=== PATIENT | male | born 1975 | race Hispanic/Latino ===

== ENCOUNTER 2018-05-17 11:24 | Inpatient (IN) | payer BC, OTHER ==
[~2018-05-17] VITALS: Ht 170.2 cm; Wt 81.2 kg
--- OUTSIDE RECORDS SUMMARY | 2018-05-17 11:27 | XMS REPORT ---
Author Author Donaldo Holbrook Organization eClinicalWorks Address Unknown Phone Unavailable Care Team Providers Care Senior Pl Sql Developer Name Role Phone Donaldo Holbrook Unavailable Encounters Encounter Location Date Test Results [facility] Jan 24, 2014 2 MONTH FU [facility] Jan 11, 2014 Night 1 Sleep Study [facility] Mar 06, 2014 Night 2 Sleep Study [facility] Mar 20, 2014 blood sugar [facility] November 21, 2013 Follow-Up [facility] November 02, 2013 Follow-Up [facility] December 04, 2013 CPAP Follow Up [facility] Apr 09, 2014 Test Results [facility] Apr 17, 2014 Problems Problem Type Condition ICD-9 Code Onset Dates Condition Status Problem CAD (coronary artery disease) 414.00 Active Problem Chronic combined systolic and diastolic CHF (congestive heart failure) 428.42 Active Problem Acute thrombus of left ventricle without [place] 429.89 Active Problem Hypertension 401.9 Active Problem Vitamin d deficiency 268.9 Active Problem Anxiety 300.00 Active Problem 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 Status , Is guatemalan your primary language? Yes Apr 09, 2014 Tobacco Use: . Are you a: former smoker Apr 09, 2014 Use of recreational / street drugs? . Answer: No Apr 09, 2014 Alcohol Screening: . Points: 0 Apr 09, 2014 Do you have pets? . Status: Yes, Type: dog(s) Apr 09, 2014 Marital Status: . Apr 09, 2014 Caffeine intake? . Status: Yes, What type: Coffee, Tea, Soft Drinks Apr 09, 2014 Do you exercise? . Answer: No Apr 09, 2014 Do you drink alcohol? . Status: No, How often? Daily, How much? Socially Apr 09, 2014 Summary Purpose eClinicalWorks Submission
--- OUTSIDE RECORDS SUMMARY | 2018-05-17 11:27 | XMS REPORT ---
Author Author Elizabeth Mcmahon [facility] eClinicalWorks Address Unknown Phone Unavailable Care Team Providers Care Reprint Sorter Name Role Phone Elizabeth Mcmahon CP Unavailable Encounters Encounter Location Date blood sugar [facility] November 21, 2013 Follow-Up [facility] November 02, 2013 Problems Problem Type Condition ICD-9 Code Onset Dates Condition Status Problem Chronic combined systolic and diastolic CHF (congestive heart failure) 428.42 Active Problem Hyperlipidemia 272.4 Active Problem Diabetes mellitus 250.00 Active Problem Hypertension 401.9 Active Problem 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 Status , Is citizen of [place] your primary language? Yes November 02, 2013 Tobacco Use: . Are you a: current smoker, How many packs per day? less than a half pack weekend smoker., How many years have you smoked? less than 1 November 02, 2013 Use of recreational / street drugs? . Answer: No November 02, 2013 Alcohol Screening: . Points: 9, Interpretation: Positive November 02, 2013 Do you have pets? . Status: Yes, Type: dog(s) November 02, 2013 Marital Status: . November 02, 2013 Caffeine intake? . Status: Yes, What type: Coffee, Tea, Soft Drinks November 02, 2013 Do you exercise? . Answer: No November 02, 2013 Do you drink alcohol? . Status: No, How often? Daily, How much? Socially November 02, 2013 Summary Purpose eClinicalWorks Submission
--- OUTSIDE RECORDS SUMMARY | 2018-05-17 11:27 | XMS REPORT ---
Author Author Donaldo Holbrook Organization eClinicalWorks Address Unknown Phone Unavailable Care Team Providers Care Assembler Unit Name Role Phone Donaldo Holbrook CP Unavailable Encounters Encounter Location Date Test Results [facility] Jan 24, 2014 2 MONTH FU [facility] Jan 11, 2014 Night 1 Sleep Study [facility] Mar 06, 2014 Night 2 Sleep Study [facility] Mar 20, 2014 blood sugar [facility] November 21, 2013 Follow-Up [facility] November 02, 2013 Follow-Up [facility] December 04, 2013 CPAP Follow Up [facility] Apr 09, 2014 Test Results [facility] Apr 17, 2014 Problems Problem Type Condition ICD-9 Code Onset Dates Condition Status Problem Chronic combined systolic and diastolic CHF (congestive heart failure) 428.42 Active Assessment 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 Problem Hypertension 401.9 Active Problem Hyperlipidemia 272.4 Active Problem Acute thrombus of left ventricle without [place] 429.89 Active Problem 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 Problem CAD (coronary artery disease) 414.00 Active Problem Diabetes mellitus 250.00 Active Problem Anxiety 300.00 Active Medications Medication Code System Code Instructions Start Date End Date Status Dosage Vitamin D (Ergocalciferol) [facility] [address]-91 19420 UNIT by mouth once per week Jan 24, 2014 Apr 18, 2014 Active 1 capsule Simcor [facility] [address]-28 500-20 MG Orally Once a day Active 1 tablet at bedtime Warfarin S[facility] [address]-04 5 MG Orally 3 x week Active 1 tablet Escitalopram Oxalate [facility] [address]-48 20 mg Orally Once a day Active 0.5 tablet for 1 week, then take a whole pill Lisinopril [facility] [address]-37 10 mg Orally Once a day Active 1 tablet Kombiglyze XR [facility] [address]-65 2.5-1000 MG Orally Once a day Active 2 tablet with evening meal Carvedilol [facility] [address]-29 3.125 MG Orally Twice a day Active 1 tablet with food Coumadin [facility] [address]-48 2.5 MG Orally 3 X week Active 1 tablet Furosemide [facility] [address]-99 40 mg Orally Once a day Active 2 tablets Clopidogrel Bisulfate [facility] [address]-69 75 MG Orally Once a day Active 1 tablet Potassium Bicarb-Citric Acid [facility] [address]-15 20 MEQ Orally Once a day- only for 2 days Active 1 tablet HydrOXYzine HCl [facility] [address]-91 10 mg Orally as needed October 17, 2013 Active 1 tablet prn anxiety Social History Social History Element Qualifiers Date Reported Ethnicity . Status , Is belarusian your primary language? Yes Apr 09, 2014 [...]
--- OUTSIDE RECORDS SUMMARY | 2018-05-17 11:27 | XMS REPORT ---
Author Author Donaldo Holbrook Organization eClinicalWorks Address Unknown Phone Unavailable Care Team Providers Care Transfer Clerk Name Role Phone Donaldo Holbrook CP Unavailable Allergies, Adverse Reactions, Alerts Substance Reaction Event Type N.K.D.A. Info Not Available Non Drug Allergy Encounters Encounter Location Date blood sugar [facility] November 21, 2013 Follow-Up [facility] November 02, 2013 Problems Problem Type Condition ICD-9 Code Onset Dates Condition Status Assessment Hyperlipidemia 272.4 Active Problem Chronic combined systolic and diastolic CHF (congestive heart failure) 428.42 Active Assessment Hypertension 401.9 Active Problem Hyperlipidemia 272.4 Active Problem Diabetes mellitus 250.00 Active Problem Hypertension 401.9 Active Problem 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 Problem CAD (coronary artery disease) 414.00 Active Problem Anxiety 300.00 Active Problem Smoker 305.1 Active Assessment ETOH abuse 305.00 Active Assessment Smoker 305.1 Active Assessment 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 Assessment Anxiety 300.00 Active Assessment LBBB (left bundle branch block) 426.3 Active Assessment Diabetes mellitus 250.00 Active Medications Medication Code System Code Instructions Start Date End Date Status Dosage Kombiglyze XR [facility] [address]-72 2.5-1000 MG Orally Once a day October 17, 2013 Active 2 tablet with evening meal [facility] [address]-46 20 mg Orally Once a day October 17, 2013 Active 0.5 tablet for 1 week, then take a whole pill HydrOXYzine HCl [facility] [address]-54 10 mg Orally every six to eight hours Active 1 tablet prn anxiety Kombiglyze XR [facility] [address]-86 2.5-1000 MG Orally Once a day Active 2 tablet with evening meal [facility]inopril [facility] [address]-50 10 mg Orally Once a day Active 1 tablet HydrOXYzine HCl [facility] [address]-11 10 mg Orally every six to eight hours October 17, 2013 Active 1 tablet prn anxiety Escitalopram Oxalate [facility] [address]-35 20 mg Orally Once a day Active 0.5 tablet for 1 week, then take a whole pill Clopidogrel Bisulfate [facility] [address]-42 75 MG Orally Once a day Active 1 tablet GlipiZIDE [facility] [address]-29 10 mg Orally Once a day Active 1 tablet Simcor [facility] [address]-25 500-20 MG Orally Once a day Active 1 tablet at bedtime Social History Social History Element Qualifiers Date Reported Ethnicity . Status , Is estonian your primary language? Yes November 02, 2013 [...] Daily, How much? Socially November 02, 2013 Vital Signs Date/Time: November 02, 2013 Weight 220 lbs Height 67 in Cardiac Monitoring Heart Rate 88 /min Blood Pressure Diastolic 80 mm Hg Blood Pressure Systolic 122 mm Hg Summary Purpose eClinicalWorks Submission
--- OUTSIDE RECORDS SUMMARY | 2018-05-17 11:27 | XMS REPORT ---
Author Author Danelle Simon [facility] eClinicalWorks Address Unknown Phone Unavailable Care Team Providers Care Pit Manager Name Role Phone Danelle Simon CP Unavailable Allergies, Adverse Reactions, Alerts Substance Reaction Event Type N.K.D.A. Info Not Available Non Drug Allergy Encounters Encounter Location Date blood sugar [facility] November 21, 2013 Follow-Up [facility] November 02, 2013 Follow-Up [facility] December 04, 2013 Problems Problem Type Condition ICD-9 Code Onset Dates Condition Status Assessment Hypertension 401.9 Active Problem Chronic combined systolic and diastolic CHF (congestive heart failure) 428.42 Active Assessment Diabetes mellitus 250.00 Active Problem Hypertension 401.9 Active Problem Hyperlipidemia 272.4 Active Problem Acute thrombus of left ventricle without [place] 429.89 Active Problem 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 Problem CAD (coronary artery disease) 414.00 Active Problem Diabetes mellitus 250.00 Active Problem Anxiety 300.00 Active Assessment [place] thrombus of cardiac apex 410.10 Active Assessment CHF (congestive heart failure) 428.0 Active Assessment LBBB (left bundle branch block) 426.3 Active Assessment Sleep apnea 780.57 Active Assessment 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 Medications Medication Code System Code Instructions Start Date End Date Status Dosage GlipiZIDE [facility] [address]-19 10 mg Orally Once a day Active 1 tablet Clopidogrel Bisulfate [facility] [address]-13 75 MG Orally Once a day Active 1 tablet Simcor [facility] [address]-63 500-20 MG Orally Once a day Active 1 tablet at bedtime HydrOXYzine HCl [facility] [address]-81 10 mg Orally as needed Active 1 tablet prn anxiety Potassium Bicarb-Citric Acid [facility] [address]-11 20 MEQ Orally Once a day- only for 2 days Active 1 tablet Furosemide [facility] [address]-33 40 MG Orally Once a day Active 1 tablet Carvedilol [facility] [address]-46 3.125 MG Orally Twice a day Active 1 tablet with food Escitalopram Oxalate [facility] [address]-38 20 mg Orally Once a day Active 0.5 tablet for 1 week, then take a whole pill Kombiglyze XR [facility] [address]-16 2.5-1000 MG Orally Once a day Active 2 tablet with evening meal Lisinopril [facility] [address]-46 10 mg Orally Once a day Active 1 tablet Furosemide Unknown 0 Oral Active 1 tab Coumadin [facility] [address]-68 2.5 MG Orally 3 X week Active 1 tablet Warfarin Sodium [facility] [address]-14 5 MG Orally 2 X week Active 1 tablet HydrOXYzine HCl [facility] [address]-09 10 mg Orally as needed October 17, 2013 Active 1 tablet prn anxiety Social History Social History Element Qualifiers Date Reported Ethnicity . Status , Is uzbek your primary language? Yes Jan 11, 2014 Tobacco Use: . Are you a: former smoker Jan 11, 2014 Use of recreational / street drugs? . Answer: No Jan 11, 2014 Alcohol Screening: . Points: 0 Jan 11, 2014 Do you have pets? . Status: Yes, Type: dog(s) Jan 11, 2014 Marital Status: . Jan 11, 2014 Caffeine intake? . Status: Yes, What type: Coffee, Tea, Soft Drinks Jan 11, 2014 Do you exercise? . Answer: No Jan 11, 2014 Do you drink alcohol? . Status: No, How often? Daily, How much? Socially Jan 11, 2014 Family history Qualifier Description Comment Date Reported Maternal Grandmother liver cancer Jan 11, 2014 Paternal Grandmother Comment not available Jan 11, 2014 Siblings alive Comment not available Jan 11, 2014 Maternal Grandfather Comment not available Jan 11, 2014 Children alive Comment not available Jan 11, 2014 Father alive Comment not available Jan 11, 2014 Paternal Grandfather alive Comment not available Jan 11, 2014 Mother Comment not available Jan 11, 2014 Vital Signs Date/Time: December 04, 2013 Weight 214 lbs Height 67 in Cardiac Monitoring Heart Rate 90 /min Blood Pressure Diastolic 70 mm Hg Blood Pressure Systolic 110 mm Hg Summary Purpose eClinicalWorks Submission
--- OUTSIDE RECORDS SUMMARY | 2018-05-17 11:27 | XMS REPORT ---
Author Author Donaldo Holbrook Organization eClinicalWorks Address Unknown Phone Unavailable Care Team Providers Care Air Intelligence Specialist Name Role Phone Donaldo Holbrook CP Unavailable Allergies, Adverse Reactions, Alerts Substance Reaction Event Type N.K.D.A. Info Not Available Non Drug Allergy Encounters Encounter Location Date Test Results [facility] Jan 24, 2014 2 MONTH FU [facility] Jan 11, 2014 Night 1 Sleep Study [facility] Mar 06, 2014 Night 2 Sleep Study [facility] Mar 20, 2014 blood sugar [facility] November 21, 2013 Follow-Up [facility] November 02, 2013 Follow-Up [facility] December 04, 2013 CPAP Follow Up [facility] Apr 09, 2014 Test Results [facility] Apr 17, 2014 Problems Problem Type Condition ICD-9 Code Onset Dates Condition Status Assessment PATIENCE (obstructive sleep apnea) 327.23 Active Problem CAD (coronary artery disease) 414.00 Active Problem Chronic combined systolic and diastolic CHF (congestive heart failure) 428.42 Active Problem Acute thrombus of left ventricle without [place] 429.89 Active Problem Hypertension 401.9 Active Problem Vitamin d deficiency 268.9 Active Problem Anxiety 300.00 Active Problem 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 Problem Hyperlipidemia 272.4 Active Problem Diabetes mellitus 250.00 Active Assessment Vitamin d deficiency 268.9 Active Assessment Diabetes mellitus 250.00 Active Assessment BMI 31.0-31.9,adult V85.31 Active Assessment Influenza vaccine refused V64.06 Active Assessment Acute thrombus of left ventricle without [place] 429.89 Active Assessment Obesity 278.00 Active Assessment CAD (coronary artery disease) 414.00 Active Medications Medication Code System Code Instructions Start Date End Date Status Dosage War[facility]in [facility] [address]-27 5 MG Orally 3 x week Active 1 tablet Kombiglyze XR [facility] [address]-50 2.5-1000 MG Orally Once a day Active 2 tablet with evening meal Carvedilol [facility] [address]-92 3.125 MG Orally Twice a day Active 1 tablet with food Lisinopril [facility] [address]-73 10 mg Orally Once a day Active 1 tablet HydrOXYzine HCl [facility] [address]-59 10 mg Orally as needed October 17, 2013 Active 1 tablet prn anxiety Escitalopram Oxalate [facility] [address]-99 20 mg Orally Once a day Active 0.5 tablet for 1 week, then take a whole pill Clopidogrel Bisulfate [facility] [address]-07 75 MG Orally Once a day Active 1 tablet Coumadin [facility] [address]-12 2.5 MG Orally 3 X week Active 1 tablet Potassium Bicarb-Citric Acid [facility] [address]-07 20 MEQ Orally Once a day- only for 2 days Active 1 tablet Vitamin D (Ergocalciferol) [facility] [address]-53 70621 UNIT by mouth once per week Jan 24, 2014 Apr 18, 2014 Active 1 capsule Simcor [facility] [address]-25 500-20 MG Orally Once a day Active 1 tablet at bedtime Furosemide [facility] [address]-38 40 mg Orally Once a day Active 2 tablets Social History Social History Element Qualifiers Date Reported Ethnicity . Status , Is yakut your primary language? Yes Apr 09, 2014 [...] Daily, How much? Socially Apr 09, 2014 Vital Signs Date/Time: Apr 09, 2014 Weight 199 lbs Height 67 in Cardiac Monitoring Heart Rate 76 /min Blood Pressure Diastolic 74 mm Hg Blood Pressure Systolic 110 mm Hg Summary Purpose eClinicalWorks Submission
--- OUTSIDE RECORDS SUMMARY | 2018-05-17 11:27 | XMS REPORT ---
Author Author Elizabeth Robertson [facility] eClinicalWorks Address Unknown Phone Unavailable Care Team Providers Care Manager Product Management Name Role Phone Elizabeth Robertson Unavailable Encounters Encounter Location Date Test Results [facility] Jan 24, 2014 2 MONTH FU [facility] Jan 11, 2014 Night 1 Sleep Study [facility] Mar 06, 2014 Night 2 Sleep Study [facility] Mar 20, 2014 blood sugar [facility] November 21, 2013 fu/med refill [facility] Mar 03, 2015 Follow-Up [facility] November 02, 2013 lab results [facility] Apr 16, 2015 Follow-Up [facility] December 04, 2013 New Refill Request [facility] August 01, 2014 CPAP Follow Up [facility] Apr 09, 2014 Test Results [facility] Apr 17, 2014 Problems Problem Type Condition ICD-9 Code Onset Dates Condition Status Problem Mixed hyperlipidemia E78.2 Active Problem Chronic combined systolic and diastolic CHF (congestive heart failure) I50.42 Active Problem 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 Active Problem 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 Problem Acute thrombus of left ventricle without [place] 429.89 Active Problem Diabetes mellitus E11.9 Active Problem Coronary atherosclerosis due to severely calcified coronary lesion I25.84 Active Problem CAD (coronary artery disease) I25.10 Active Problem Essential hypertension I10 Active Problem Vitamin D deficiency E55.9 Active Problem Anxiety F41.9 Active Problem Depression F32.9 Active Medications Medication Code System Code Instructions Start Date End Date Status Dosage Vitamin D [facility] [address]-07 42548 U Orally once a week Apr 16, 2015 August 15, 2015 Active as directed Social History Social History Element Qualifiers Date Reported Tobacco Use: . Are you a: former smoker, Additional Findings: Tobacco Non-User Ex-cigarette smoker Mar 03, 2015 Use of recreational / street drugs? . Answer: No Mar 03, 2015 Alcohol Screening: . Points: 0 Mar 03, 2015 Ethnicity . Status , Is spanish your primary language? Yes Mar 03, 2015 Do you have pets? . Status: Yes, Type: dog(s) Mar 03, 2015 Marital Status: . Mar 03, 2015 Caffeine intake? . Status: Yes, What type: Coffee, Tea, Soft Drinks Mar 03, 2015 Do you exercise? . Answer: No Mar 03, 2015 Do you drink alcohol? . Status: No, How often? Daily, How much? Socially Mar 03, 2015 Occupation: . [employer] Mar 03, 2015 Summary Purpose eClinicalWorks Submission
--- OUTSIDE RECORDS SUMMARY | 2018-05-17 11:27 | XMS REPORT ---
Author Author Donaldo Holbrook Organization [employer] Address Unknown Phone Unavailable Care Team Providers Care Licensed Practical Nurse Instructor Name Role Phone Donaldo Holbrook CP Unavailable Allergies, Adverse Reactions, Alerts Substance Reaction Event Type N.K.D.A. 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 Active Problem Obesity (BMI 30-39.9) E66.9 Active Assessment Mixed hyperlipidemia E78.2 Active Problem Coronary atherosclerosis due to severely calcified coronary lesion I25.84 Active Problem 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 Active Problem Chronic combined systolic and diastolic CHF (congestive heart failure) I50.42 Active Problem Mixed hyperlipidemia E78.2 Active Assessment Anxiety F41.9 Active Assessment Coronary atherosclerosis due to severely calcified coronary lesion I25.84 Active Assessment Essential hypertension I10 Active Assessment Depression F32.9 Active Assessment Chronic combined systolic and diastolic CHF (congestive heart failure) I50.42 Active Assessment Routine physical examination Z00.00 Active Assessment CAD (coronary artery disease) I25.10 Active Assessment Diabetes mellitus E11.9 Active Medications Medication Code System Code Instructions Start Date End Date Status Dosage Carvedilol [facility] 73082496388 6.25 MG Orally once a day Active 2 tablets with food Clopidogrel Bisulfate ND 79075158520 75 MG Orally Once a day Active 1 tablet Entresto ND 09226974649 49-51 MG Orally Twice a day Active 1 tablet Lisinopril [facility] 24481666540 20 MG Orally Once a day Active 1 tablet Furosemide [facility] 24117868330 40 mg Orally Once a day Active 2 tablets Aspir-81 [facility] 22188941338 81 MG Orally Once a day Active 1 tablet Simcor [facility] 44740124249 500-20 MG Orally Once a day Active 1 tablet at bedtime Xarelto [facility] 71122326381 20 MG Orally Once a day Active 1 tablet with food Spironolactone [facility] 40440418653 25 MG Orally once daily Active 1 tablet Atorvastatin Calcium [facility] 86394402274 20 MG Orally Once a day Active 1 tablet Kombiglyze XR [facility] [address]-46 2.5-1,000 Active TAKE TWO TABLETS BY MOUTH DAILY WITH EVENING MEAL Kombiglyze XR [facility] 50206667676 2.5-1000 MG Orally Once a day Mar 26, 2016 Active 2 tablet with evening meal Escitalopram Oxalate [facility] [address]-85 20 mg Orally daily Mar 26, 2016 Active 1 tablet Vital Signs Date/Time: Jun 10, 2017 BMI 30.07 Index Weight 192 lbs Height 67 in Cardiac Monitoring Heart Rate 71 /min Blood Pressure Diastolic 64 mm Hg Blood Pressure Systolic 110 mm Hg Results No Known Results Summary Purpose [employer] Submission
--- OUTSIDE RECORDS SUMMARY | 2018-05-17 11:27 | XMS REPORT ---
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 Problem Coronary atherosclerosis due to severely calcified coronary lesion I25.84 Active Problem Varicose veins of right lower extremity with inflammation I83.11 Active Problem Vitamin D deficiency E55.9 Active Problem Depression F32.9 Active Problem 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
--- OUTSIDE RECORDS SUMMARY | 2018-05-17 11:27 | XMS REPORT ---
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 Role Phone Donaldo Holbrook CP Unavailable Encounters Encounter Location Date Test Results [facility] Jan 24, 2014 2 MONTH FU [facility] Jan 11, 2014 blood sugar [facility] November 21, 2013 Follow-Up [facility] November 02, 2013 Follow-Up [facility] December 04, 2013 Problems Problem Type Condition ICD-9 Code Onset Dates Condition Status Problem Chronic combined systolic and diastolic CHF (congestive heart failure) 428.42 Active Problem Hypertension 401.9 Active Problem Hyperlipidemia 272.4 Active Problem Acute thrombus of left ventricle without [place] 429.89 Active Problem 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 Status , Is algerian your primary language? Yes Jan 11, 2014 [...] Daily, How much? Socially Jan 11, 2014 Summary Purpose [employer]Works Submission
--- OUTSIDE RECORDS SUMMARY | 2018-05-17 11:27 | XMS REPORT ---
Author Author Donaldo Holbrook Organization [employer] Address Unknown Phone Unavailable Care Team Providers Care Assistant Film Editor Name Role Phone Donaldo Holbrook CP Unavailable Allergies, Adverse Reactions, Alerts Substance Reaction Event Type N.K.D.A. Info Not Available Non Drug Allergy Encounters Encounter Location Date Test Results [facility] Jan 24, 2014 2 MONTH FU [facility] Jan 11, 2014 blood sugar [facility] November 21, 2013 Follow-Up [facility] November 02, 2013 Follow-Up [facility] December 04, 2013 Problems Problem Type Condition ICD-9 Code Onset Dates Condition Status Assessment Acute thrombus of left ventricle without CT 429.89 Active Problem Chronic combined systolic and diastolic CHF (congestive heart failure) 428.42 Active Assessment Diabetes mellitus 250.00 Active Problem Hypertension 401.9 Active Problem Hyperlipidemia 272.4 Active Problem Acute thrombus of left ventricle without CT 429.89 Active Problem 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 Problem CAD (coronary artery disease) 414.9 Active Problem Diabetes mellitus 250.00 Active Problem Anxiety 300.00 Active Assessment Chronic combined systolic and diastolic CHF (congestive heart failure) 428.42 Active Assessment CAD (coronary artery disease) 414.9 Active Assessment Sleep apnea 780.57 Active Assessment Hyperlipidemia 272.4 Active Assessment 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 Assessment Hypertension 401.9 Active Medications Medication Code System Code Instructions Start Date End Date Status Dosage Escitalopram Oxalate [facility] [address]-56 20 mg Orally Once a day Active 0.5 tablet for 1 week, then take a whole pill Kombiglyze XR [facility] [address]-28 2.5-1000 MG Orally Once a day Active 2 tablet with evening meal GlipiZIDE [facility] [address]-93 10 mg Orally Once a day Active 1 tablet Potassium Bicarb-Citric Acid [facility] [address]-97 20 MEQ Orally Once a day- only for 2 days Active 1 tablet HydrOXYzine HCl [facility] [address]-76 10 mg Orally as needed October 17, 2013 Active 1 tablet prn anxiety Clopidogrel Bisulfate [facility] [address]-38 75 MG Orally Once a day Active 1 tablet Warfarin Sodium [facility] [address]-30 5 MG Orally 3 x week Active 1 tablet Carvedilol [facility] [address]-01 3.125 MG Orally Twice a day Active 1 tablet with food Lisinopril [facility] [address]-70 10 mg Orally Once a day Active 1 tablet Coumadin [facility] [address]-81 2.5 MG Orally 3 X week Active 1 tablet Simcor [facility] [address]-78 500-20 MG Orally Once a day Active 1 tablet at bedtime Furosemide [facility] [address]-76 40 mg Orally Once a day Active 2 tablets Social History Social History Element Qualifiers Date Reported Ethnicity . Status , Is scottish your primary language? Yes Jan 11, 2014 [...] Daily, How much? Socially Jan 11, 2014 Vital Signs Date/Time: Jan 11, 2014 Weight 202 lbs Height 67 in Cardiac Monitoring Heart Rate 91 /min Blood Pressure Diastolic 80 mm Hg Blood Pressure Systolic 120 mm Hg Summary Purpose [employer]ClinicalWorks Submission
--- OUTSIDE RECORDS SUMMARY | 2018-05-17 11:27 | XMS REPORT ---
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 Role Phone Elizabeth Blanchard CP Unavailable Allergies No Known Allergies Problems Problem Type Condition Code Onset Dates Condition Status Problem Diabetes mellitus E11.9 Active Problem Vitamin D deficiency E55.9 Active Problem Depression F32.9 Active Problem Anxiety F41.9 Active Problem CAD (coronary artery disease) I25.10 Active Problem BMI 30.0-30.9,adult Z68.30 Active Problem Essential hypertension I10 Active Problem Obesity (BMI 30-39.9) E66.9 Active Problem Coronary atherosclerosis due to severely calcified coronary lesion I25.84 Active Problem 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 Active Problem Chronic combined systolic and diastolic CHF (congestive heart failure) I50.42 Active Problem Mixed hyperlipidemia E78.2 Active Medications Medication Code System Code Instructions Start Date End Date Status Dosage Lisinopril [facility] 99225872162 5 MG Orally Once a day Jun 20, 2017 Active 1 tablet Results No Known Results Summary Purpose [employer]ClinicalWorks Submission
--- OUTSIDE RECORDS SUMMARY | 2018-05-17 11:27 | XMS REPORT | Encounter Summary ---
Author Organization Unknown Address [address] [place] [id number] Phone [phone] Reason for Visit Medical Complaint Instructions 1. Dental abscess abscessed tooth: care instructions Augmentin 875 mg-125 mg tablet Discussion Note: None recorded. Plan of Care Patient Instructions take medication as directed. follow up with dentist in 4-5 days for evaluation. Reminders Provider Appointments None recorded. Lab None recorded. Referral None recorded. Procedures None recorded. Surgeries None recorded. Imaging None recorded. Medications Name Start Date atorvastatin 20 mg tablet Augmentin 875 mg-125 mg tablet Take 1 tablet every 12 hours by oral route with meals for 10 days. Entresto 49 mg-51 mg tablet escitalopram 20 mg tablet Kombiglyze XR 2.5 mg-1,000 mg tablet,extended release lisinopril 20 mg tablet spironolactone 25 mg tablet Xarelto 20 mg tablet Medications Administered None recorded. Vitals Height Weight BMI Blood Pressure 5 ft 7 in 190 lbs 29.8 kg/m2 120/70 mm[Hg] Lab Results None recorded. Allergies Code Code System Name Reaction Severity Status Onset NKDA Problems None recorded. Procedures None recorded. Vaccine List Vaccine Type influenza, injectable, quadrivalent 04/29/2017 Social History Smoking Status Never Smoker Past Encounters 2017 Dental Abscess Xavier Armstrong [facility]: [address] [place] [address], Ph. History of Present Illness Pczq-Qcgfaau-Yhdqr-Skin Lesion-Bite 1 Reported By: Patient HPI: Location: face. Quality: painful, single. Severity: moderate. Duration: has noted for <1 week. Onset/Timing: gradual onset. Context: no new detergents or skin products, no one else with similar rash, no sting or bite. Aggravating factors: nothing makes it worse. Alleviating factors: antibiotics. Associated Symptoms: no fever/chills, no muscle aches, no headache, no cold symptoms, no nausea, no vomiting, no diarrhea, no urinary symptoms Review of Systems:ROS as noted in the HPI Review of Systems Basic Reported By: Patient Physical Exam Adult Basic, Adult Male Complete Reported By: Patient Constitutional: General Appearance: healthy-appearing, well-nourished, well-developed. Level of Distress: NAD. Ambulation: ambulating normally Psychiatric: Mental Status: active and alert Zug-Juuq-Zxptj-Throat: Oropharynx: ; swelling on upper jaw, left side. ttp. erythema Lungs: Respiratory effort: no dyspnea, no tachypnea, no use of accessory muscles, no intercostal retractions. Auscultation: breath sounds normal, good air movement Cardiovascular: Heart Auscultation: RRR, no murmurs
--- OUTSIDE RECORDS SUMMARY | 2018-05-17 11:27 | XMS REPORT | Continuity of Care Document ---
Author Author [facility] Interface Address Unknown Phone Unavailable Problems Problem Status Onset Date Classification Date Reported Comments Source Dental abscess 2017 Diagnosis 2017 [facility] Diabetes mellitus Active Problem 06/21/2017 [facility] Vitamin D deficiency Active Problem 06/21/2017 [facility] Depression Active Problem 06/21/2017 [facility] Anxiety Active Problem 06/21/2017 [facility] CAD Active Problem 06/21/2017 [facility] BMI 30.0-30.9,adult Active Problem 06/21/2017 [facility] Essential hypertension Active Problem 06/21/2017 [facility] Obesity Active Problem 06/21/2017 [facility] Coronary atherosclerosis due to severely calcified coronary lesion Active Problem 06/21/2017 [facility] Presence of automatic implantable cardioverter-defibrillator Active Problem 06/21/2017 [facility] Chronic combined systolic and diastolic CHF Active Problem 06/21/2017 [facility] Mixed hyperlipidemia Active Problem 06/21/2017 [facility] Chronic combined systolic and diastolic CHF Active Problem 05/07/2014 [facility] Hyperlipidemia Active Problem 05/07/2014 [facility] Diabetes mellitus Active Problem 05/07/2014 [facility] Hypertension Active Problem 05/07/2014 [facility] Hx of CABG Active Problem 06/04/2017 [facility] CAD Active Problem 05/07/2014 [facility] Anxiety Active Problem 05/07/2014 [facility] Smoker Active Problem 11/29/2013 [facility] Varicose veins of left lower extremity with inflammation Active Problem 06/04/2017 [facility] Varicose veins of right lower extremity with inflammation Active Problem 06/04/2017 [facility] Acute thrombus of left ventricle without ND Active Problem 06/04/2017 [facility] Routine physical examination Active Diagnosis 06/15/2017 [facility] ETOH abuse Active Diagnosis 11/29/2013 [facility] LBBB Active Diagnosis 01/15/2014 [facility] Vitamin d deficiency Active Problem 05/07/2014 [facility] Hypersomnia with sleep apnea Active Diagnosis 05/07/2014 [facility] CAD Active Problem 02/20/2014 [facility] Sleep apnea Active Diagnosis 02/20/2014 [facility] PATIENCE Active Diagnosis 05/07/2014 [facility] BMI 31.0-31.9,adult Active Diagnosis 05/07/2014 [facility] Influenza vaccine refused Active Diagnosis 05/07/2014 [facility] Obesity Active Diagnosis 05/07/2014 [facility] Serum potassium elevated Active Diagnosis 07/03/2016 [facility] Mural thrombus of cardiac apex Active Diagnosis 01/15/2014 [facility] CHF Active Diagnosis 01/15/2014 [facility] Medications Medication Details Route Status Patient Instructions Ordering Provider Order Date Source Lisinopril 1 tablet Orally Active 5 MG Orally Once a day Justin Schumacher 06/20/2017 [facility] Kombiglyze XR 2 tablet with evening meal Orally Active 2.5-1000 MG Orally Once a day [place] 03/26/2016 [facility] Escitalopram Oxalate 1 tablet Orally Active 20 mg Orally daily [place] 03/26/2016 [facility] Kombiglyze XR 2 tablet with evening meal Orally Active 2.5-1000 MG Orally Once a day [place] 03/26/2016 [facility] Vitamin D as directed Orally Active 10730 U Orally once a week Marcel[place] 04/16/2015 [facility] Vitamin D (Ergocalciferol) 1 capsule Orally Active 25874 UNIT Orally once per week [place] 04/17/2014 [facility] Vitamin D (Ergocalciferol) 1 capsule by mouth Active 63854 UNIT by mouth once per week [place] 01/24/2014 [facility] Kombiglyze XR 2 tablet with evening meal Orally Active 2.5-1000 MG Orally Once a day [place] 10/17/2013 [facility] Escitalopram Oxalate 0.5 tablet for 1 week, then take a whole pill Orally Active 20 mg Orally Once a day [place] 10/17/2013 [facility] HydrOXYzine HCl 1 tablet prn anxiety Orally Active 10 mg Orally as needed [place] 10/17/2013 [facility] Carvedilol 2 tablets with food Orally Active 6.25 MG Orally once a day [facility] Clopidogrel Bisulfate 1 tablet Orally Active 75 MG Orally Once a day [facility] Entresto 1 tablet Orally Active 49-51 MG Orally Twice a day [facility] Lisinopril 1 tablet Orally Active 20 MG Orally Once a day [facility] Furosemide 2 tablets Orally Active 40 mg Orally Once a day [facility] Aspir-81 1 tablet Orally Active 81 MG Orally Once a day [facility] Simcor 1 tablet at bedtime Orally Active 500-20 MG Orally Once a day [facility] Xarelto 1 tablet with food Orally Active 20 MG Orally Once a day [facility] Spironolactone 1 tablet Orally Active 25 MG Orally once daily [facility] Atorvastatin Calcium 1 tablet Orally Active 20 MG Orally Once a day [facility] Kombiglyze XR TAKE TWO TABLETS BY MOUTH DAILY WITH EVENING MEAL NA Active 2.5-1,000 [facility] HydrOXYzine HCl 1 tablet prn anxiety Orally Active 10 mg Orally as needed Ghebranjoleen [facility] Kombiglyze XR 2 tablet with evening meal Orally Active 2.5-1000 MG Orally Once a day [facility] Lisinopril 1 tablet Orally Active 10 mg Orally Once a day [facility] Escitalopram Oxalate 0.5 tablet for 1 week, then take a whole pill Orally Active 20 mg Orally Once a day [facility] Clopidogrel Bisulfate 1 tablet Orally Active 75 MG Orally Once a day [facility] GlipiZIDE 1 tablet Orally Active 10 mg Orally Once a day [facility] Simcor 1 tablet at bedtime Orally Active 500-20 MG Orally Once a day [facility] Furosemide 2 tablets Orally Active 40 mg Orally Once a day [facility] Xarelto 1 tablet with food Orally Active 20 MG Orally Once a day [facility] Carvedilol 2 tablets with food Orally Active 6.25 MG Orally once a day [facility] Lisinopril 1 tablet Orally Active 20 MG Orally Once a day [facility] Atorvastatin Calcium 1 tablet Orally Active 20 MG Orally Once a day [facility] Spironolactone 1 tablet Orally Active 25 MG Orally once daily [facility] Potassium Bicarb-Citric Acid 1 tablet Orally Active 20 MEQ Orally Once a day-only for 2 days [facility] Warfarin Sodium 1 tablet Orally Active 5 MG Orally 3 x week [facility] Carvedilol 1 tablet with food Orally Active 3.125 MG Orally Twice a day [facility] Coumadin 1 tablet Orally Active 2.5 MG Orally 3 X week [facility]semide 1 tab [facility] atorvastatin 20 MG Oral Tablet atorvastatin 20 mg tablet Active [facility] Amoxicillin 875 MG / Clavulanate 125 MG Oral Tablet [Augmentin] Augmentin 875 mg-125 mg tablet Take 1 tablet every 12 hours by oral route with meals for 10 days. Active [facility] sacubitril 49 MG / valsartan 51 MG Oral Tablet [Entresto] Entresto 49 mg-51 mg tablet Active [facility] Escitalopram 20 MG Oral Tablet escitalopram 20 mg tablet Active [facility] 24 HR Metformin hydrochloride 1000 MG / saxagliptin 2.5 MG Extended Release Oral Tablet [Kombiglyze] Kombiglyze XR 2.5 mg-1,000 mg tablet,extended release Active [facility] Lisinopril 20 MG Oral Tablet lisinopril 20 mg tablet Active [facility] Spironolactone 25 MG Oral Tablet spironolactone 25 mg tablet Active [facility] rivaroxaban 20 MG Oral Tablet [Xarelto] Xarelto 20 mg tablet Active [facility] Allergies, Adverse Reactions, Alerts Substance Category Reaction Severity Reaction type Status Date Reported Comments Source N.K.D.A. Adverse Reaction Info Not Available Adverse Reaction Active 06/10/2017 [facility] Immunizations Immunization Date Given Site Status Last Updated Comments Source influenza, injectable, quadrivalent 04/29/2017 completed [facility] Results Order Name Results Value Reference Range Date Interpretation Comments Source Vital Signs Vital Sign Value Date Comments Source Weight 192 06/10/2017 [facility] Height 67 06/10/2017 [facility] Heart Rate 71 06/10/2017 [facility] Diastolic (mm Hg) 64 06/10/2017 [facility] Systolic (mm Hg) 110 06/10/2017 [facility] Diastolic (mm Hg) 70 2017 [facility] Height 67 2017 [facility] Systolic (mm Hg) 120 2017 [facility] Weight 190 2017 [facility] Weight 196 06/03/2016 [facility] Height 67 06/03/2016 [facility] Diastolic (mm Hg) 72 06/03/2016 [facility] Systolic (mm Hg) 108 06/03/2016 [facility] Weight 199 04/09/2014 [facility] Height 67 04/09/2014 [facility] Heart Rate 76 04/09/2014 [facility] Diastolic (mm Hg) 74 04/09/2014 [facility] Systolic (mm Hg) 110 04/09/2014 [facility] Weight 202 01/11/2014 [facility] Height 67 01/11/2014 [facility] Heart Rate 91 01/11/2014 [facility] Diastolic (mm Hg) 80 01/11/2014 [facility] Systolic (mm Hg) 120 01/11/2014 [facility] Weight 214 12/04/2013 [facility] Height 67 12/04/2013 [facility] Heart Rate 90 12/04/2013 [facility] Diastolic (mm Hg) 70 12/04/2013 [facility] Systolic (mm Hg) 110 12/04/2013 [facility] Weight 220 11/02/2013 [facility] Height 67 11/02/2013 [facility] Heart Rate 88 11/02/2013 [facility] Diastolic (mm Hg) 80 11/02/2013 [facility] Systolic (mm Hg) 122 11/02/2013 [facility] Encounters Location Location Details Encounter Type Encounter Number Reason For Visit Attending Provider ADM Date DC Date Status Source [facility] Follow-Up [id number] 11/02/2013 11/02/2013 [facility] Follow-Up [id number] 11/02/2013 11/02/2013 [facility] Follow-Up [id number] 11/02/2013 11/02/2013 [facility] Follow-Up [id number] 11/02/2013 11/02/2013 [facility] Follow-Up [id number] 11/02/2013 11/02/2013 [facility] Follow-Up [id number] 11/02/2013 11/02/2013 [facility] Follow-Up [id number] 11/02/2013 11/02/2013 [facility] Follow-Up [id number] 11/02/2013 11/02/2013 [facility] Follow-Up [id number] 11/02/2013 11/02/2013 [facility] Follow-Up [id number] 11/02/2013 11/02/2013 [facility] Follow-Up [id number] 11/02/2013 11/02/2013 [facility] Follow-Up [id number] 11/02/2013 11/02/2013 [facility] blood sugar [id number] 11/21/2013 11/21/2013 [facility] blood sugar [id number] 11/21/2013 11/21/2013 [facility] blood sugar [id number] 11/21/2013 11/21/2013 [facility] blood sugar [id number] 11/21/2013 11/21/2013 [facility] blood sugar [id number] 11/21/2013 11/21/2013 [facility] blood sugar [id number] 11/21/2013 11/21/2013 [facility] blood sugar [id number] 11/21/2013 11/21/2013 [facility] blood sugar [id number] 11/21/2013 11/21/2013 [facility] blood sugar [id number] 11/21/2013 11/21/2013 [facility] blood sugar [id number] 11/21/2013 11/21/2013 [facility] blood sugar [id number] 11/21/2013 11/21/2013 [facility] blood sugar [id number] 11/21/2013 11/21/2013 [facility] Follow-Up [id number] 12/04/2013 12/04/2013 [facility] Follow-Up [id number] 12/04/2013 12/04/2013 [facility] Follow-Up [id number] 12/04/2013 12/04/2013 [facility] Follow-Up [id number] 12/04/2013 12/04/2013 [facility] Follow-Up [id number] 12/04/2013 12/04/2013 [facility] Follow-Up [id number] 12/04/2013 12/04/2013 [facility] Follow-Up [id number] 12/04/2013 12/04/2013 [facility] Follow-Up [id number] 12/04/2013 12/04/2013 [facility] Follow-Up [id number] 12/04/2013 12/04/2013 [facility] Follow-Up [id number] 12/04/2013 12/04/2013 [facility] 2 MONTH FU [id number] 01/11/2014 01/11/2014 [facility] 2 MONTH FU [id number] 01/11/2014 01/11/2014 [facility] 2 MONTH FU [id number] 01/11/2014 01/11/2014 [facility] 2 MONTH FU [id number] 01/11/2014 01/11/2014 [facility] 2 MONTH FU [id number] 01/11/2014 01/11/2014 [facility] 2 MONTH FU [id number] 01/11/2014 01/11/2014 [facility] 2 MONTH FU [id number] 01/11/2014 01/11/2014 [facility] 2 MONTH FU [id number] 01/11/2014 01/11/2014 [facility] 2 MONTH FU [id number] 01/11/2014 01/11/2014 [facility] Test Results [id number] 01/24/2014 01/24/2014 [facility] Test Results [id number] 01/24/2014 01/24/2014 [facility] Test Results [id number] 01/24/2014 01/24/2014 [facility] Test Results [id number] 01/24/2014 01/24/2014 [facility] Test Results [id number] 01/24/2014 01/24/2014 [facility] Test Results [id number] 01/24/2014 01/24/2014 [facility] Test Results [id number] 01/24/2014 01/24/2014 [facility] Test Results [id number] 01/24/2014 01/24/2014 [facility] Test Results [id number] 01/24/2014 01/24/2014 [facility] Night 1 Sleep Study [id number] 03/07/2014 03/07/2014 [facility] Night 1 Sleep Study [id number] 03/07/2014 03/07/2014 [facility] Night 1 Sleep Study [id number] 03/07/2014 03/07/2014 [facility] Night 1 Sleep Study [id number] 03/07/2014 03/07/2014 [facility] Night 1 Sleep Study [id number] 03/07/2014 03/07/2014 [facility] Night 1 Sleep Study [id number] 03/07/2014 03/07/2014 [facility] Night 1 Sleep Study [id number] 03/07/2014 03/07/2014 [facility] Night 2 Sleep Study [id number] 03/21/2014 03/21/2014 [facility] Night 2 Sleep Study [id number] 03/21/2014 03/21/2014 [facility] Night 2 Sleep Study [id number] 03/21/2014 03/21/2014 [facility] Night 2 Sleep Study [id number] 03/21/2014 03/21/2014 [facility] Night 2 Sleep Study [id number] 03/21/2014 03/21/2014 [facility] Night 2 Sleep Study [id number] 03/21/2014 03/21/2014 [facility] Night 2 Sleep Study [id number] 03/21/2014 03/21/2014 [facility] CPAP Follow Up [id number] 04/09/2014 04/09/2014 [facility] CPAP Follow Up [id number] 04/09/2014 04/09/2014 [facility] CPAP Follow Up [id number] 04/09/2014 04/09/2014 [facility] CPAP Follow Up [id number] 04/09/2014 04/09/2014 [facility] CPAP Follow Up [id number] 04/09/2014 04/09/2014 [facility] CPAP Follow Up [id number] 04/09/2014 04/09/2014 [facility] CPAP Follow Up [id number] 04/09/2014 04/09/2014 [facility] Test Results [id number] 04/17/2014 04/17/2014 [facility] Test Results [id number] 04/17/2014 04/17/2014 [facility] Test Results [id number] 04/17/2014 04/17/2014 [facility] Test Results [id number] 04/17/2014 04/17/2014 [facility] Test Results [id number] 04/17/2014 04/17/2014 [facility] Test Results [id number] 04/17/2014 04/17/2014 [facility] Test Results [id number] 04/17/2014 04/17/2014 [facility] New Refill Request [id number] 08/01/2014 08/01/2014 [facility] New Refill Request [id number] 08/01/2014 08/01/2014 [facility] New Refill Request [id number] 08/01/2014 08/01/2014 [facility] fu/med refill [id number] 03/03/2015 03/03/2015 [facility] fu/med refill [id number] 03/03/2015 03/03/2015 [facility] fu/med refill [id number] 03/03/2015 03/03/2015 [facility] lab results [id number] 04/16/2015 04/16/2015 [facility] lab results [id number] 04/16/2015 04/16/2015 [facility] lab results [id number] 04/16/2015 04/16/2015 [facility] refills [id number] 06/03/2016 06/03/2016 [facility] [id number] 06/03/2016 06/03/2016 [facility] Test results [id number] 07/02/2016 07/02/2016 [facility] [id number]_PrsljwsaMago Armstrong, CAUSTIC STRENGTH INSPECTOR-C: [address] [place] [address], Ph. [id number] Xavier Armstrong 2017 [facility] Procedures Procedure Code Date Perfomer Comments Source
--- OUTSIDE RECORDS SUMMARY | 2018-05-17 11:27 | XMS REPORT ---
Author Author Donaldo Holbrook Organization [employer] Address Unknown Phone Unavailable Care Team Providers Care Refractory Worker Name Role Phone Donaldo Holbrook CP Unavailable Encounters Encounter Location Date Test Results [facility] Jan 24, 2014 2 MONTH FU [facility] Jan 11, 2014 Night 1 Sleep Study [facility] Mar 06, 2014 Night 2 Sleep Study [facility] Mar 20, 2014 blood sugar [facility] November 21, 2013 Follow-Up [facility] November 02, 2013 Follow-Up [facility] December 04, 2013 New Refill Request [facility] August 01, 2014 CPAP Follow Up [facility] Apr 09, 2014 Test Results [facility] Apr 17, 2014 refills [facility] Jun 03, 2016 Test results [facility] Jul 02, 2016 fu/med refill [facility] Mar 03, 2015 lab results [facility] Apr 16, 2015 Problems Problem Type Condition ICD-9 Code Onset Dates Condition Status Problem Chronic combined systolic and diastolic CHF (congestive heart failure) I50.42 Active Problem Essential hypertension I10 Active Problem Vitamin D deficiency E55.9 Active Problem Varicose veins of left lower extremity with inflammation I83.12 Active Problem CAD (coronary artery disease) I25.10 Active Problem Varicose veins of right lower extremity with inflammation I83.11 Active Problem Anxiety F41.9 Active Problem Depression F32.9 Active Problem Diabetes mellitus E11.9 Active Problem Coronary atherosclerosis due to severely calcified coronary lesion I25.84 Active Problem 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 Problem Acute thrombus of left ventricle without [place] 429.89 Active Problem Mixed hyperlipidemia E78.2 Active Assessment Serum potassium elevated E87.5 Active Problem 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 Active Social History Social History Element Qualifiers Date Reported Tobacco Use: . Are you a: former smoker, Additional Findings: Tobacco Non-User Ex-cigarette smoker Jun 03, 2016 Use of recreational / street drugs? . Answer: No Jun 03, 2016 Alcohol Screening: . Points: 0 Jun 03, 2016 Ethnicity . Status , Is ecuadorean your primary language? Yes Jun 03, 2016 Do you have pets? . Status: Yes, Type: dog(s) Jun 03, 2016 Marital Status: . Jun 03, 2016 Caffeine intake? . Status: Yes, What type: Coffee, Tea, Soft Drinks Jun 03, 2016 Do you exercise? . Answer: No Jun 03, 2016 Do you drink alcohol? . Status: No, How often? Daily, How much? Socially Jun 03, 2016 Occupation: . [employer] work at [employer] Jun 03, 2016 Summary Purpose [employer] Submission
--- OUTSIDE RECORDS SUMMARY | 2018-05-17 11:27 | XMS REPORT ---
Author Author Donaldo Holbrook Organization [employer] Address Unknown Phone Unavailable Care Team Providers Care Angle Dozer Operator Name Role Phone Donaldo Holbrook CP Unavailable Encounters Encounter Location Date Test Results [facility] Jan 24, 2014 2 MONTH FU [facility] Jan 11, 2014 Night 1 Sleep Study [facility] Mar 06, 2014 Night 2 Sleep Study [facility] Mar 20, 2014 blood sugar [facility] November 21, 2013 Follow-Up [facility] November 02, 2013 Follow-Up [facility] December 04, 2013 CPAP Follow Up [facility] Apr 09, 2014 Test Results [facility] Apr 17, 2014 Problems Problem Type Condition ICD-9 Code Onset Dates Condition Status Problem Chronic combined systolic and diastolic CHF (congestive heart failure) 428.42 Active Assessment 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 Problem Hypertension 401.9 Active Problem Hyperlipidemia 272.4 Active Problem Acute thrombus of left ventricle without [place] 429.89 Active Problem 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 Problem CAD (coronary artery disease) 414.00 Active Problem Diabetes mellitus 250.00 Active Problem Anxiety 300.00 Active Social History Social History Element Qualifiers Date Reported Ethnicity . Status , Is indonesian your primary language? Yes Apr 09, 2014 [...]
--- OUTSIDE RECORDS SUMMARY | 2018-05-17 11:27 | XMS REPORT ---
Author Author Donaldo Holbrook Organization [employer] Address Unknown Phone Unavailable Care Team Providers Care Wharf Hand Name Role Phone Donaldo Holbrook CP Unavailable Allergies, Adverse Reactions, Alerts Substance Reaction Event Type N.K.D.A. Info Not Available Non Drug Allergy Encounters Encounter [facility] Date [facility] November 21, 2013 Follow[facility]Up [facility] November 02, 2013 Follow-Up [facility] December 04, 2013 New Refill Request [facility] August 01, 2014 CPAP Follow Up [facility] Apr 09, 2014 Test Results [facility] Apr 17, 2014 refills [facility] Jun 03, 2016 fu/med refill [facility] Mar 03, 2015 lab results [facility] Apr 16, 2015 Problems Problem Type Condition ICD-9 Code Onset Dates Condition Status Problem Chronic combined systolic and diastolic CHF (congestive heart failure) I50.42 Active Problem Essential hypertension I10 Active Problem Vitamin D deficiency E55.9 Active Problem Varicose veins of left lower extremity with inflammation I83.12 Active Assessment Varicose veins of right lower extremity with inflammation I83.11 Active Problem CAD (coronary artery disease) I25.10 Active Problem Varicose veins of right lower extremity with inflammation I83.11 Active Problem Anxiety F41.9 Active Problem Depression F32.9 Active Problem Diabetes mellitus E11.9 Active Problem Coronary atherosclerosis due to severely calcified coronary lesion I25.84 Active Assessment CAD (coronary artery disease) I25.10 Active Assessment Essential hypertension I10 Active Assessment Varicose veins of left lower extremity with inflammation I83.12 Active Assessment Chronic combined systolic and diastolic CHF (congestive heart failure) I50.42 Active Problem 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 Problem Acute thrombus of left ventricle without [place] 429.89 Active Assessment Vitamin D deficiency E55.9 Active Problem Mixed hyperlipidemia E78.2 Active Assessment Diabetes mellitus E11.9 Active Problem 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 Active Medications Medication Code System Code Instructions Start Date End Date Status Dosage Furosemide [facility] [address]-11 40 mg Orally Once a day Active 2 tablets Clopidogrel Bisulfate [facility] [address]-24 75 MG Orally Once a day Active 1 tablet Escitalopram Oxalate [facility] [address]-74 20 MG Orally Once a day (MUST SEE DOCTOR BEFORE NEXT REFILL) Mar 26, 2016 Active 1 tablet Xarelto [facility] [address]-63 20 MG Orally Once a day Active 1 tablet with food Carvedilol [facility] [address]-96 6.25 MG Orally once a day Active 2 tablets with food Lisinopril [facility] [address]-92 20 MG Orally Once a day Active 1 tablet Atorvastatin Calcium [facility] [address]-77 20 MG Orally Once a day Active 1 tablet Simcor [facility] [address]-96 500-20 MG Orally Once a day Active 1 tablet at bedtime Spironolactone [facility] [address]-91 25 MG Orally once daily Active 1 tablet Kombiglyze XR [facility] [address]-09 2.5-1000 MG Orally Once a day Mar 26, 2016 Active 2 tablet with evening meal Social History Social History Element Qualifiers Date Reported Tobacco Use: . Are you a: former smoker, Additional Findings: Tobacco Non-User Ex-cigarette smoker Jun 03, 2016 Use of recreational / street drugs? . Answer: No Jun 03, 2016 Alcohol Screening: . Points: 0 Jun 03, 2016 Ethnicity . Status , Is danish your primary language? Yes Jun 03, 2016 [...] much? Socially Jun 03, 2016 Occupation: . [employer] work at [employer] Jun 03, 2016 Family history Qualifier Description Comment Date Reported Maternal Grandmother liver cancer Jun 03, 2016 Paternal Grandmother Comment not available Jun 03, 2016 Siblings alive Comment not available Jun 03, 2016 Maternal Grandfather Comment not available Jun 03, 2016 Children alive Comment not available Jun 03, 2016 Father alive Comment not available Jun 03, 2016 Paternal Grandfather alive Comment not available Jun 03, 2016 Mother Comment not available Jun 03, 2016 Other: Comment not available Jun 03, 2016 Vital Signs Date/Time: Jun 03, 2016 Weight 196 lbs Height 67 in Blood Pressure Diastolic 72 mm Hg Blood Pressure Systolic 108 mm Hg Summary Purpose eClinicalWorks Submission
[2018-05-17 12:07] LABS: BASOPHILS % 0.6 % (0.0-1.0); EOSINOPHILS # (AUTO) 0.1 (0.0-0.4); EOSINOPHILS % 2.2 % (0.0-6.0); HEMOGLOBIN 8.5 g/dL (14.0-18.0); LYMPHOCYTES # (AUTO) 0.7 (1.0-3.2); LYMPHOCYTES % 13.5 % (18.0-39.1); MEAN CORPUSCULAR HEMOGLOBIN 29.3 pg (28-32); MEAN CORPUSCULAR HGB CONC 31.5 g/dL (31-35); MEAN CORPUSCULAR VOLUME 93.1 fL (81-99); MONOCYTES # (AUTO) 0.4 (0.2-0.8); MONOCYTES % 7.3 % (4.4-11.3); NEUTROPHILS # (AUTO) 3.9 (2.1-6.9); PLATELET COUNT 164 x10e3/uL (140-360); RED CELL DISTRIBUTION WIDTH 15.3 % (11.7-14.4)
[2018-05-17 12:26] LABS: INR 2.21; PROTHROMBIN TIME 26.2 seconds (11.9-14.5)
[2018-05-17 12:36] LABS: ALBUMIN 3.7 g/dL (3.5-5.0); ALBUMIN/GLOBULIN RATIO 0.9 (0.8-2.0); ANION GAP 18.3 mmol/L (8-16); CALCIUM 9.2 mg/dL (8.4-10.2); CREATININE, SERUM 3.01 mg/dL (0.72-1.25); POTASSIUM 5.3 mmol/L (3.5-5.1)
[2018-05-17] MEDS ORDERED: SOD POLYSTYRENE SULFONATE SUSP 15 GM/60 ML BTL PO ONE (12:45)
[2018-05-17 13:34] LABS: CREATINE KINASE MB 1.3 ng/mL (0-5.0)
--- NOTE | 2018-05-17 15:04 | Diagnostic Imaging Report ---
EXAM: CT Abdomen and Pelvis WITHOUT contrast INDICATION: Ascites, pain COMPARISON: None. TECHNIQUE: Abdomen and Pelvis was scanned utilizing a multidetector helical scanner without the use of IV contrast. Coronal and sagittal reformations were obtained. IV CONTRAST: None COMPLICATIONS: None RADIATION DOSE: Total DLP: 746 mGy*cm Estimated effective dose: (DLP x 0.015 x size factor) mSv CTDIvol has been reviewed. It is below the limits set by the Radiation Protocol Committee (RPC). Appropriate CT dose reduction techniques were utilized. FINDINGS: Abdomen: Lung Bases: Trace left and kacon-zl-vhuoeqml right effusions. Septal thickening and groundglass opacities present lung bases. ICD leads partially visualized. Solid Organs: Evaluation limited by lack of IV contrast, large volume ascites, and quantum mottling. Nodular contour of the liver. Limited evaluation of solid organs grossly unremarkable. Upper GI Tract: No distinct small bowel obstructive change. Vascularity: Mild aortic vascular calcifications with no aneurysm. Lymph Nodes: Inadequately evaluated. Other: Large amount of abdominal and pelvic free fluid. Body wall anasarca. Pelvis: Bladder: Unremarkable. Other: Large amount of free fluid. Colon: Evaluation markedly limited. Bones: No acute findings. IMPRESSION: 1. Evaluation markedly limited by large volume ascites, lack of IV contrast, and quantum mottling. 2. Large amount of abdominal and pelvic free fluid, possibly secondary to underlying cirrhosis. Underlying liver lesion cannot be excluded, exam. Clinical/laboratory correlation recommended. Additional bilateral anasarca. 3. Asymmetric to the right pleural effusions with septal thickening and groundglass opacities consistent with at least moderate volume overload. 4. Cardiomegaly. Echocardiogram could be obtained if indicated. Decreased attenuation of cardiac blood pool suggesting anemia. Signed by: Dr. Jonny Carr MD on 05/17/2018 3:01 PM
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
[2018-05-17 21:41] LABS: CREATINE KINASE MB 1.3 ng/mL (0-5.0)
[2018-05-17 21:45] VITALS: BP 107/70
[2018-05-17 22:01] LABS: % IRON SATURATION 12 % (15-50); IRON 51 ug/dL (65-175); TOTAL IRON BINDING CAPACITY 434 ug/dL (261-478); TRANSFERRIN 310 mg/dL (174-364)
[2018-05-17 23:17] VITALS: BP 107/70
[2018-05-18] VITALS (7 sets, daily range): BP systolic 93–105; BP diastolic 58–72
[2018-05-18 05:41] LABS: BASOPHILS % 0.4 % (0.0-1.0); EOSINOPHILS # (AUTO) 0.1 (0.0-0.4); EOSINOPHILS % 2.3 % (0.0-6.0); HEMATOCRIT 24.1 % (38.2-49.6); HEMOGLOBIN 7.7 g/dL (14.0-18.0); LYMPHOCYTES # (AUTO) 0.8 (1.0-3.2); LYMPHOCYTES % 16.3 % (18.0-39.1); MEAN CORPUSCULAR HEMOGLOBIN 29.3 pg (28-32); MEAN CORPUSCULAR VOLUME 91.6 fL (81-99); MONOCYTES # (AUTO) 0.4 (0.2-0.8); MONOCYTES % 8.8 % (4.4-11.3); NEUTROPHILS # (AUTO) 3.5 (2.1-6.9); NEUTROPHILS % 71.8 % (38.7-80.0); PLATELET COUNT 134 x10e3/uL (140-360); RED BLOOD COUNT 2.63 x10e6/uL (4.3-5.7); RED CELL DISTRIBUTION WIDTH 15.1 % (11.7-14.4)
[2018-05-18 05:58] LABS: CHOL/HDL RATIO 3.9 (3.9-4.7)
[2018-05-18 06:06] LABS: CREATINE KINASE MB 1.1 ng/mL (0-5.0)
[2018-05-18 06:13] LABS: ALBUMIN 3.4 g/dL (3.5-5.0); CALCIUM 9.1 mg/dL (8.4-10.2); CREATININE, SERUM 2.62 mg/dL (0.72-1.25)
--- NOTE | 2018-05-18 07:20 | Progress Note ---
DATE: This patient is here for acute kidney injury, possible hepatorenal syndrome, cirrhosis of the liver, and congestive heart failure. The patient is still short of breath. Still complains of tense ascites and abdominal pain. Currently, the patient is afebrile. OBJECTIVE VITALS: Temperature is 98.1, pulse of 73, respirations of 16, and blood pressure is 102/70, pulse ox 93%. HEENT: Normocephalic and atraumatic. Icterus present. CV: S1 and S2 normal. Regular rate and rhythm. ABDOMEN: Tense with ascites with caput. EXTREMITIES: Positive for edema. LABORATORY VALUES: Today's white count is 4.8, hemoglobin 7.7, hematocrit of 24.1. Neutrophil count was 71.8. Chemistry: Sodium was 136, BUN of 79, creatinine of 2.62, total bilirubin was 1.7. LDL 54, HDL 24, cholesterol ratio of 3.4. IMAGING STUDIES: Same as abdominal CT yesterday. MEDICATIONS: None have been restarted. ASSESSMENT AND PLAN 1. Congestive heart failure: A cardiac consult has been done. Will get echocardiogram. 2. Cirrhosis of the liver: AFB has been noted. Hepatitis panel has been ordered. The patient will have a large volume paracentesis today. Will continue monitoring it. 3. Hepatorenal syndrome: Dr. Lui has been consulted. 4. Hyperlipidemia: Hold off on the statins at this time. LDL is normal. 5. History of automatic implanted cardioverter defibrillator placement and history of coronary artery disease with bypass: Dr. Euceda on case. 6. Anemia: His hemoglobin is 7.7. Will go ahead and type and cross 2 units of packed red blood cells if needed. PLAN: Today, would be to have a large volume paracentesis. Send the fluid for evaluation. Restart his home medications. Further recommendations per clinical course. Discussed with by bedside. Job#: [id number] SUDHAKAR
[2018-05-18] MEDS ORDERED: ALDACTONE25 MG PO (10:05)
[2018-05-18] MEDS ORDERED: CARVEDILOL12.5 MG PO (10:05)
[2018-05-18] MEDS ORDERED: LEXAPRO10 MG PO (10:06)
[2018-05-18] MEDS ORDERED: XARELTO20 MG PO (10:08)
[2018-05-18] MEDS ORDERED: ATORVASTATIN CA20 MG PO (10:09)
[2018-05-18] MEDS ORDERED: KOMBIGLYZE XR1 EAC2 PO (10:10)
[2018-05-18] MEDS ORDERED: LASIX40 MG PO (10:10)
[2018-05-18] MEDS ORDERED: ASPIRIN81 MG (10:11)
--- NOTE | 2018-05-18 10:53 | NUR ---
CASE MANAGEMENT INITIAL ASSESSMENT [employer] to bedside to discuss plan of care with patient/family. CM/SW role and care transitions discussed. Anticipated discharge plan discussed along with duration of care. CM/SW discussed patients right to make decisions in care. CM/SW work hours given. Patient lives: HOUSE WITH FAMILY Admit/Transfer: VIA HOME POA/Emergency contact: BRIT [phone] Current/Previous Home Health: NONE PCP/Follow-up Care: LIA Current/Previous DME: CPAP Other Services: NONE Employment Status: [employer] Areas of Concerns: NONE Referral Needs: NONE Education Needs: NONE IMM/RUBIO given and signed (if applicable): NA Goal for discharge: RETURN HOME INDEPENDENTLY CM/SW left business card at the bedside with contact information. Name and number was also written on the patients whiteboard. Patient verbalized understanding of discussion. CM will follow-up with ongoing discharge and transition of care needs.
[2018-05-18] MEDS ORDERED: CARVEDILOL 12.5 MG TAB PO SCH (17:00)
[2018-05-18] MEDS ORDERED: BUMETANIDE 10 MG in SODIUM CHLORIDE 0.9% 100 ML 60 ML IV SCH (17:15)
[2018-05-18] MEDS ORDERED: BUMETANIDE INJ 0.25MG/ML 4ML VIAL IV NR (17:15)
--- NOTE | 2018-05-18 17:42 | Consultation ---
DATE OF CONSULTATION: CARDIOLOGY CONSULTATION REASON FOR CONSULTATION: Heart failure. HISTORY OF PRESENT ILLNESS: This is a 43-year-old man who has a history of chronic systolic congestive heart failure, ischemic cardiomyopathy, coronary artery disease status post coronary artery bypass graft surgery, history of implantable cardioverter-defibrillator, possible "blood clot," and possible atrial fibrillation, who presented to the emergency department with progressively worsening shortness of breath and abdominal swelling. Patient used to follow with Dr. Cruz at [facility], however switched to the [employer] system and presented to an outside facility where he was prompted to seek medical attention in the emergency department. Patient states that he has been compliant with his medications consisting of Lasix 120 mg b.i.d., Coreg, Entresto, and spironolactone. Patient states that he does from jplo-cm-rlcu eat salty meals. No ongoing tobacco or alcohol use. Upon arrival here, patient was found to have a significant amount of ascites, was admitted to the immediate care unit for continuation of his care. He denies any chest pain or palpitations. REVIEW OF SYSTEMS: A 12-point review of systems was conducted, and is negative other than described above in HPI. PAST MEDICAL HISTORY 1. Systolic congestive heart failure. 2. Coronary artery disease status post coronary artery bypass graft surgery. 3. Presence of implantable cardioverter-defibrillator. 4. Atrial fibrillation. 5. Hyperlipidemia. 6. Diabetes mellitus. 7. Hypertension. PAST SURGICAL HISTORY 1. Coronary artery bypass graft surgery. 2. Implantable cardioverter-defibrillator. 3. Cardiac catheterization. FAMILY HISTORY: Multiple family members with heart disease at a young age. SOCIAL HISTORY: Former alcohol use. None reported in the last 10 years. No intravenous drug use. Tobacco use in the past, stopped in 2008. ALLERGIES: NO KNOWN DRUG ALLERGIES. MEDICATIONS: See medication reconciliation form. PHYSICAL EXAMINATION VITALS: Temperature is 97.2, heart rate is 62, respirations are 14, blood pressure is 93/58, oxygen saturation is 99% on room air. GENERAL: He is a chronically ill-appearing young man, appears older than his stated age. HEENT: Head is normocephalic, atraumatic. Eyes: The extraocular movements are intact. Conjunctivae clear. NECK: Jugular venous distention present. No bruits. CARDIOVASCULAR: Regular rate and rhythm. Systolic murmur heard best at the left lower sternal border. LUNGS: Diminished breath sounds at bilateral bases. ABDOMEN: Distended, tense, swollen, nontender. EXTREMITIES: Two-plus pitting edema, left greater than right. SKIN: Chronic venous stasis dermatitis on the lower extremities. Mild jaundice. NEUROLOGIC: No focal deficits noted. Cranial nerves grossly intact. PSYCHIATRIC: Normal mood and affect. LABORATORY DATA: Creatinine 2.62. AST, ALT 24, total bilirubin 1.7, albumin is 3.7. Troponins are negative x3 sets. LDL is 54. Potassium is 5. A 12-lead electrocardiogram showed ventricular paced rhythm. CT scan of the abdomen and pelvis showed large volume ascites, right pleural effusions, cardiomegaly. A 2-D echocardiogram showed a dilated left ventricle with severely reduced systolic function with an estimated ejection fraction of 20% to 25% with moderate tricuspid regurgitation. IMPRESSIONS 1. Afeyp-kt-viulbay systolic congestive heart failure. 2. Cirrhosis with ascites, likely due to passive congestion from right heart failure. 3. Hypertension. 4. Hyperlipidemia. 5. Diabetes mellitus. 6. Coronary artery disease status post coronary artery bypass graft surgery. 7. Presence of implantable cardioverter-defibrillator. 8. Atrial fibrillation. RECOMMENDATIONS: This patient appears extremely volume overloaded and decompensated from his heart failure standpoint. I suspect that his liver failure is related to passive congestion from right heart failure. Patient appears to have cardiorenal syndrome as well. Will start bumetanide drip and continue to monitor urinary outputs and daily weights. Would have nephrology evaluate the patient as well. If needed, patient may require some inotropic support with milrinone or dobutamine. Otherwise I would hold his beta janina at this point in time until better compensated. Can resume low-dose Entresto after adequate diuresis. A paracentesis has been ordered. This would be safe enough to proceed as he has been without his Xarelto for 48 hours. Will continue to follow closely. Will have the [employer] ICD interrogated. Job#: [id number] JERMAINE
--- NOTE | 2018-05-18 18:55 | Consultation ---
DATE OF CONSULTATION: May 18, 2018 HISTORY OF PRESENT ILLNESS: This is a 43-year-old gentleman, history of coronary bypass surgery, history of AICD placement. Developed increasing abdominal distention, which has been going on for the last 2 months. Denies prior history of any renal insufficiency or kidney stone disease. He was scheduled for paracentesis, but interventional radiology refused to get paracentesis because the patient is on Eliquis. He has been here since yesterday. Renal has been consulted for electrolyte imbalance and acute kidney injury. Patient denies prior history of any renal insufficiency or kidney stone disease. States that he does not have any problems while voiding urine. LABORATORY TESTS: Sodium 136, potassium 5, chloride 106, bicarbonate 19, BUN 79, creatinine 2.62. His hemoglobin is 7.7, his white count is 4.82. ALLERGIES: NO APPARENT DRUG ALLERGIES. He also has a history of congestive heart failure, hyperlipidemia, type-2 diabetes, history of atrial fibrillation. SOCIAL HISTORY: Patient is . Does not smoke or drink. CURRENT MEDICATION: Carvedilol 6.25 p.o. b.i.d. Patient had a CT of abdomen and pelvis, which shows large amount of abdominal pelvic free fluid, possibly underlying cirrhosis, asymmetric right pleural effusion, cardiomegaly, nodular contour of liver. No comments on kidneys. EXAM GENERAL: Patient awake, alert, obviously fluid overloaded, laying supine, appears ill. No apparent respiratory distress. VITALS: Blood pressure 93/58, pulse rate 62, afebrile, oxygen saturation 99%. HEAD AND NECK: Cornea clear. Mild icterus noted. Oral mucosa moist. Neck veins not distended. LUNGS: Decreased air entry in both bases. HEART: S1, S2 audible. Significant 3/6 holosystolic murmur heard over lower left and mitral area. No gallop noted. ABDOMEN: Obese, soft. Flanks full. Slightly tense ascites. Bladder possibly percussed above. LOWER EXTREMITIES: 1 to 2+ edema. IMPRESSIONS AND PLAN 1. Evidence of significant third space edema. 2. Acute kidney injury borderline elevated potassium and metabolic acidosis, probably distal RTA. We did a bladder scan and it confirmed that he has urinary retention as well. I plan to place a Shore catheter. Discussed with and patient in great detail. Will apply knee-high AINSLEY hoses. Urine protein-creatinine ratio. Diurese with Lasix. Overall prognosis poor. Please see orders. Job#: [id number] CQ
[2018-05-18] MEDS: FUROSEMIDE INJ 10 MG/ML 4 ML VIAL IV SCH (20:59)
[2018-05-19] VITALS (7 sets, daily range): BP systolic 94–106; BP diastolic 63–73
[2018-05-19] MEDS ORDERED: SODIUM CHLORIDE 0.9% 250ML 250 ML ONE ×2 (04:12→14:54)
[2018-05-19] MEDS: FUROSEMIDE INJ 10 MG/ML 4 ML VIAL IV SCH ×3 (05:03→16:22)
--- NOTE | 2018-05-19 07:16 | Progress Note ---
DATE: The patient is here for ascites and also for shortness of breath. The patient did not receive TAP yesterday secondary to being on Xarelto. The patient is currently off the Xarelto. The patient has also received 2 units of jumbo FFP and possible TAP will be done today. Shortness of breath continues. Also, the patient is weak. The patient otherwise is alert and oriented times 3. No complaints except for the weakness. OBJECTIVE VITAL SIGNS: Temperature is 98.6, blood pressure is 95/64, respirations of 19. HEENT: Normocephalic and atraumatic. Icterus present. CV: S1 and S2 normal. Regular rate and rhythm. ABDOMEN: Tense ascites with caput. EXTREMITIES: No clubbing. Positive for edema. LABORATORY VALUES: The patient's white count is 4.8, RBC 2.63, hemoglobin 7.7, hematocrit of 24.1. Chemistry: Today's are pending. LDL is 54. Coags: INR is 2.2. MEDICATIONS: He is on: 1. Lasix 40 mg q.8 h. 2. Iron sucrose q.24 h. 3. The patient's carvedilol has been discontinued, and Bumex has been discontinued too. ASSESSMENT 1. Cirrhosis of the liver. 2. Systolic congestive heart failure: The patient's ejection fraction showed about 60% to 65%. 3. Presence of automatic implanted cardioverter defibrillator. 4. Atrial fibrillation. 5. Hyperlipidemia. 6. Diabetes mellitus. 7. Hypertension. 8. Coronary artery disease. PLAN: Have a paracentesis today. Will continue monitoring the patient's volume. Hypertension to be monitored carefully. The patient will be discharged possibly tomorrow after the TAP. Labs of AFB and hepatitis panel are pending. Further recommendations per clinical course. Will continue monitoring the patient along with the consultants. Job#: [id number] SUDHAKAR
--- NOTE | 2018-05-19 07:29 | NUR ---
pt resting in bed, no s/s distress at this time. no c/o pain. will continue to monitor.
[2018-05-19 07:53] LABS: BASOPHILS % 0.5 % (0.0-1.0); EOSINOPHILS # (AUTO) 0.1 (0.0-0.4); EOSINOPHILS % 1.8 % (0.0-6.0); HEMATOCRIT 23.7 % (38.2-49.6); HEMOGLOBIN 7.5 g/dL (14.0-18.0); LYMPHOCYTES # (AUTO) 0.7 (1.0-3.2); LYMPHOCYTES % 14.8 % (18.0-39.1); MEAN CORPUSCULAR HEMOGLOBIN 29.2 pg (28-32); MEAN CORPUSCULAR HGB CONC 31.6 g/dL (31-35); MEAN CORPUSCULAR VOLUME 92.2 fL (81-99); MONOCYTES # (AUTO) 0.4 (0.2-0.8); MONOCYTES % 8.2 % (4.4-11.3); NEUTROPHILS # (AUTO) 3.3 (2.1-6.9); NEUTROPHILS % 74.2 % (38.7-80.0); PLATELET COUNT 118 x10e3/uL (140-360); RED BLOOD COUNT 2.57 x10e6/uL (4.3-5.7); RED CELL DISTRIBUTION WIDTH 15.1 % (11.7-14.4)
[2018-05-19 08:04] LABS: INR 1.26; PROTHROMBIN TIME 16.9 seconds (11.9-14.5)
[2018-05-19 08:12] LABS: ALBUMIN 3.5 g/dL (3.5-5.0); ALBUMIN/GLOBULIN RATIO 0.9 (0.8-2.0); ANION GAP 16.9 mmol/L (8-16); CALCIUM 9.3 mg/dL (8.4-10.2); CREATININE, SERUM 2.45 mg/dL (0.72-1.25); POTASSIUM 4.9 mmol/L (3.5-5.1)
[2018-05-19] MEDS: IRON SUCROSE 100 MG in SODIUM CHLORIDE 0.9% 100 ML 100 ML IV SCH (10:18)
[2018-05-19 11:46] LABS: CREATININE,URINE RANDOM 33.06 mg/dL (63-166)
[2018-05-19 11:51] LABS: TOTAL PROTEIN, URINE < 6.8 mg/dL (1-14)
--- NOTE | 2018-05-19 12:01 | NUR ---
farida cosme [facility] lab.
--- NOTE | 2018-05-19 13:27 | NUR ---
dr santiago aware of urine results. no orders. pt to go for paracentesis shortly.
--- NOTE | 2018-05-19 14:42 | NUR ---
pt off unit for procedure
[2018-05-19] MEDS ORDERED: ALBUMIN 25% 12.5GM 200 ML IV ONE (14:54)
--- NOTE | 2018-05-19 16:00 | NUR ---
RETURN TO FLOOR CARE. RM 180#. Report to Dee Dee Posey 9600cc brown effluent removed. and sent to lab. 50gm albumin given ivp via ac site line flushed no s/s infiltration. left puncture site with tegederm w/o s/s drainage or ooze. Report face to face at station.Denies c/o family at bedside. Please inquire regarding antidepresent restarts.
--- NOTE | 2018-05-19 16:10 | NUR ---
per report, paracentesis removed 9600cc from pt. pending return to unit.
[2018-05-19 16:15] LABS: BODY FLUID APPEARANCE CLOUDY; BODY FLUID COLOR STRAW; BODY FLUID TYPE PERITONEAL
--- NOTE | 2018-05-19 16:22 | Diagnostic Imaging Report ---
PROCEDURE:US GUIDED PARACENTESIS COMPARISON:[facility], CT, CT ABDOMEN/PELVIS WO, 05/17/2018, 14:32. INDICATIONS:Ascites FINDINGS:Following informed consent and sterile preparation, an appropriate location in the left lower quadrant was determined. Utilizing ultrasound for guidance a 5 Greek Centeze catheter was placed after local anesthesia obtained with 1% Xylocaine. Drainage of approximately 9,600 cc of andres colored ascitic fluid was accomplished. The catheter was removed and hemostasis obtained. Patient tolerated procedure well. Specimens sent to the laboratory for analysis. Patient did receive 50 g of albumin during the procedure. CONCLUSION:Successful ultrasound-guided paracentesis. Thomas Parr D.O. Dictated by: Thomas Parr D.O. on 05/19/2018 at 16:33 Electronically approved by: Thomas Parr D.O. on 05/19/2018 at 16:33
[2018-05-19 17:23] LABS: RBC,BODY FLUID 114 cells/uL; WBC,BODY FLUID 13 cells/uL
[2018-05-19 18:33] LABS: LYMPHOCYTES,BODY FLUID 7 %; MONO/MACROPHG,BODY FLUID 6 %; NEUTROPHILS,BODY FLUID 31 %
[2018-05-19 21:11] LABS: OTHER CELLS,BODY FLUID 56 %
[2018-05-20] VITALS (8 sets, daily range): BP systolic 99–102; BP diastolic 57–73
[2018-05-20 05:46] LABS: BASOPHILS % 0.5 % (0.0-1.0); EOSINOPHILS # (AUTO) 0.1 (0.0-0.4); EOSINOPHILS % 2.5 % (0.0-6.0); HEMATOCRIT 24.9 % (38.2-49.6); HEMOGLOBIN 7.9 g/dL (14.0-18.0); LYMPHOCYTES # (AUTO) 0.7 (1.0-3.2); LYMPHOCYTES % 16.6 % (18.0-39.1); MEAN CORPUSCULAR HEMOGLOBIN 28.7 pg (28-32); MEAN CORPUSCULAR HGB CONC 31.7 g/dL (31-35); MEAN CORPUSCULAR VOLUME 90.5 fL (81-99); MONOCYTES # (AUTO) 0.4 (0.2-0.8); MONOCYTES % 9.3 % (4.4-11.3); NEUTROPHILS # (AUTO) 3.1 (2.1-6.9); NEUTROPHILS % 70.9 % (38.7-80.0); PLATELET COUNT 120 x10e3/uL (140-360); RED BLOOD COUNT 2.75 x10e6/uL (4.3-5.7); RED CELL DISTRIBUTION WIDTH 15.1 % (11.7-14.4)
--- NOTE | 2018-05-20 05:59 | NUR ---
Plan: Dr. Galicia cleared patient for discharge but needs to be called with the results for ultra sound with Doppler, enquire from Dr. Lui if patient is ok to be discharged and also the Shore if it can be discontinued, ok with Dr. Andersen for patient to be discharged.
[2018-05-20 06:10] LABS: ALBUMIN 3.3 g/dL (3.5-5.0); ALBUMIN/GLOBULIN RATIO 1.1 (0.8-2.0); ANION GAP 15.5 mmol/L (8-16); CALCIUM 8.9 mg/dL (8.4-10.2); CREATININE, SERUM 2.15 mg/dL (0.72-1.25); POTASSIUM 4.5 mmol/L (3.5-5.1)
--- NOTE | 2018-05-20 07:22 | Progress Note ---
DATE: ADDENDUM ASSESSMENT AND PLAN: AICD. The patient has his AICD being interrogated. Also for his atrial fibrillation, he has been taken off his Xarelto. We will resume Xarelto in a day. For further information, look in the chart. The patient has been followed by cardiology and by nephrology. Job#: [id number] PSO
--- NOTE | 2018-05-20 07:29 | NUR ---
pt resting in bed, no c/o pain or s/s distress at this time. will continue to monitor.
--- NOTE | 2018-05-20 07:39 | NUR ---
Patient endorsed to next shift for continuity of care.
[2018-05-20] MEDS: BUMETANIDE 1 MG TAB PO SCH ×2 (08:42→17:04)
[2018-05-20] MEDS: IRON SUCROSE 100 MG in SODIUM CHLORIDE 0.9% 100 ML 100 ML IV SCH (08:42)
[2018-05-20] MEDS ORDERED: IRON SUCROSE 100 MG in SODIUM CHLORIDE 0.9% 100 ML 100 ML IV SCH (09:00)
--- NOTE | 2018-05-20 12:07 | Progress Note ---
DATE: May 20, 2018 CARDIOLOGY PROGRESS NOTE SUBJECTIVE: Patient denies chest pain. He states his shortness of breath is much improved. Patient had paracentesis yesterday with 9.6 liters of fluid removed. OBJECTIVE VITAL SIGNS: Temperature 97.4 degrees, pulse 76, respiratory rate 16, blood pressure 101/64, oxygen saturation 98% on room air. GENERAL: Awake, alert. No acute distress. LUNGS: Clear to auscultation bilaterally. No wheezes or crackles. CARDIOVASCULAR: Normal rate. Regular rhythm. Systolic murmur, best appreciated at the left lower sternal border. ABDOMEN: Soft, nontender. EXTREMITIES: 1+ pitting edema, left greater than right. CARDIAC MEDICATIONS: Bumex 2 mg p.o. b.i.d. LABS: Sodium 140, potassium 4.5, chloride 107, CO2 of 22, BUN 64, creatinine 2.15. WBC 4.4, hemoglobin 7.9, hematocrit 24.9, platelets 120. IMPRESSION 1. Qnopp-md-xiqpsgv systolic heart failure. 2. Cirrhosis with ascites, suspect secondary to passive congestion from right heart failure. 3. Acute kidney injury. 4. Coronary artery disease, status post coronary artery bypass graft. 5. Status post automatic implantable cardioverter-defibrillator. 6. Atrial fibrillation. 7. Hypertension. 8. Hyperlipidemia. 9. Diabetes mellitus. RECOMMENDATIONS: Patient remains volume overloaded. Recommend continued diuretics. Patient will need to resume low-dose Entresto after renal function stabilizes if blood pressure permits. Will hold beta janina until better compensated. Resume aspirin and atorvastatin. Patient will need to resume Xarelto as well tomorrow given his recent paracentesis. Thank you for this consult. We will continue to follow. Job#: [id number] LPA MTDD
[2018-05-20] MEDS: FUROSEMIDE INJ 10 MG/ML 4 ML VIAL IV SCH (12:25)
--- NOTE | 2018-05-20 15:19 | NUR ---
dc hartmann, pt voided. pending liver us.
--- NOTE | 2018-05-20 16:12 | NUR ---
pt to be npo 6hrs for US. ate lunch. per US tech, will have done @1800, educated pt npo until test complete.
--- NOTE | 2018-05-20 19:00 | NUR ---
Patient laying in bed with HOB slightly elevated. AAO x 4. No sob noted. No acute distress noted. Bed at low position and locked. Call light within reach and reminded patient to utilize when assistance is needed. Patient in stable condition and will continue to monitor.
--- NOTE | 2018-05-20 19:05 | NUR ---
pt pending US of liver, previously per attending pt may dc once cleared from renal. pt was cleared from renal today pending dt void after fc removed. pt has been voiding. let nightshift know to report US results and pt may dc.
--- NOTE | 2018-05-20 20:40 | NUR ---
Assisted patient to room 204. Patient stable.
--- NOTE | 2018-05-20 20:45 | NUR ---
Received report from Sanya RN, patient was transferred from OBS per wheelchair, accompanied by RN, pt alert, no complaints of pain, not in distress, dressing to the LLQ noted, s/p paracentesis. Call light within easy reached, advised to call for assistance when needed. Will contnue to monitor
[2018-05-20] MEDS ORDERED: ATORVASTATIN 20 MG TAB PO SCH (21:00)
[2018-05-21] VITALS: BP 99/70
--- NOTE | 2018-05-21 00:34 | Diagnostic Imaging Report ---
EXAM: US LIVER DATE: 05/20/2018 12:00 AM INDICATION: With Doppler, evaluate for cirrhosis, ascites, COMPARISON: Recent CT TECHNIQUE: Transverse and longitudinal rivers scale and color doppler sonographic images of the upper abdomen were obtained. FINDINGS: LIVER 16.4 cm in the right midclavicular line. Normal echogenicity, nodular contour, no masses. Enlarged IVC and hepatic veins. GALLBLADDER Contracted limiting its assessment. Echogenic material likely reflecting non-shadowing stones or sludge. Markedly thickened gallbladder wall up to 1 cm nonspecific. Negative sonographic Ramirez's sign. BILE DUCTS No intra nor extra-hepatic biliary dilation. Common bile duct measures 0.2 cm PANCREAS: Visualized portions unremarkable. RIGHT KIDNEY: 9.4 cm Echogenicity: Normal Collecting System: No hydronephrosis Stones: None Cyst/Mass: None VESSELS: Aorta: Visualized portions are within normal size limits Inferior Vena Cava: Enlarged intrahepatic IVC Main Portal Vein: 0.8 cm, normal size with hepatopetal flow. Mildly pulsatile flow. FREE FLUID: Large volume ascites IMPRESSION: 1. Morphologic changes of cirrhosis, which may be cardiac in nature, given enlargement of the IVC and hepatic veins suggesting passive hepatic congestion. 2. Large volume ascites. 3. Contracted gallbladder containing stones with marked gallbladder wall thickening, presumably reactive. Signed by: Dr Verena Gonzalez MD on 05/21/2018 12:31 AM
--- NOTE | 2018-05-21 01:15 | NUR ---
Dr. Galicia came and seen pt, Liver US result was posted
--- NOTE | 2018-05-21 01:30 | NUR ---
result was posted, bladder scan done, pt is not retaining urine, no complaints of lower abdominal pain noted, patient is voiding freely
[2018-05-21 04:00] VITALS: BP 108/59
[2018-05-21 05:46] LABS: BASOPHILS % 0.2 % (0.0-1.0); EOSINOPHILS # (AUTO) 0.1 (0.0-0.4); EOSINOPHILS % 2.9 % (0.0-6.0); HEMATOCRIT 25.2 % (38.2-49.6); LYMPHOCYTES # (AUTO) 0.7 (1.0-3.2); LYMPHOCYTES % 14.3 % (18.0-39.1); MEAN CORPUSCULAR HEMOGLOBIN 28.9 pg (28-32); MEAN CORPUSCULAR HGB CONC 31.7 g/dL (31-35); MONOCYTES # (AUTO) 0.4 (0.2-0.8); MONOCYTES % 9.2 % (4.4-11.3); NEUTROPHILS # (AUTO) 3.3 (2.1-6.9); PLATELET COUNT 111 x10e3/uL (140-360); RED BLOOD COUNT 2.77 x10e6/uL (4.3-5.7); RED CELL DISTRIBUTION WIDTH 15.1 % (11.7-14.4)
[2018-05-21 06:15] LABS: ANION GAP 14.1 mmol/L (8-16); CALCIUM 8.8 mg/dL (8.4-10.2); CREATININE, SERUM 1.88 mg/dL (0.72-1.25); POTASSIUM 4.1 mmol/L (3.5-5.1)
--- NOTE | 2018-05-21 06:36 | NUR ---
paged Dr. Andersen, spoke to Lisa answering service, awaiting call back
--- NOTE | 2018-05-21 07:00 | NUR ---
RCD PT AT BED PT IS ALERT AND ORIENTED ASSESSMENT DONE PT RESTING ON BED IV PATENT FAMILY AT BED SIDE BED LOW BED LOW AND LOCKED CALL LIGHT IN REACH
--- NOTE | 2018-05-21 07:13 | NUR ---
Dr. Andersen is rounding, aware of CT result
[2018-05-21 07:52] VITALS: BP 108/59
--- NOTE | 2018-05-21 08:00 | NUR ---
A/C TO DR WALTERS PT CAN GO HOME IF OK WITH DR SMALLS AND DR Mg DURANT SO PAGED TO THEM TO GET THE DISCHARGE APPROVAL
[2018-05-21 08:07] VITALS: BP 100/59
--- NOTE | 2018-05-21 08:15 | NUR ---
DR RONALD HARRIS RETURNED CALL HE IS OK TO DISCHARGE PT AND FOLLOW UP AFTER 3 WEEKS
--- NOTE | 2018-05-21 08:31 | Progress Note ---
DATE: SUBJECTIVE: Patient is here for ascites and also shortness of breath. Currently, the patient is status post large-volume paracentesis, feeling better. Patient does complain of re-accumulation of the fluid, but otherwise patient is doing better, eating better, no complaints. OBJECTIVE VITAL SIGNS: Temperature is 97.9, pulse of 77, respirations of 18, blood pressure is 108/59, and pulse oximetry 97%. HEENT: Positive for icterus. CVS: S1, S2 normal. Regular rate and rhythm. ABDOMEN: Distended. EXTREMITIES: No clubbing, no cyanosis, and no edema. MICROBIOLOGY VALUES: Gram-stain preliminary cultures are negative. LABORATORY VALUES: Chemistries; sodium 139, potassium was 4.1, BUN was 58, and creatinine of 1.88 with an EGFR of 40%. MEDICATIONS: The patient is on atorvastatin 20 mg, Bumex 2 mg twice a day, furosemide 40 mg b.i.d., aspirin 81 mg, and iron sucrose at this time. ASSESSMENT 1. Iucne-dd-xrvaqyo congestive heart failure. 2. Cirrhosis of the liver with ascites. 3. Acute kidney injury. 4. History of coronary artery disease. 5. History of coronary artery bypass grafting. 6. Chronic obstructive pulmonary disease. 7. Presence of automatic implantable cardioverter-defibrillator. 8. Hypertension. 9. Hyperlipidemia. 10. Diabetes mellitus. 11. Cholecystitis. PLAN: Plan will be to discharge the patient home. Medications will be written. Patient will follow up with his primary care physician. Also needs hepatology consult [place] with , which will be made. His gallbladder ultrasound did show contracted gallbladder. Patient's family does not desire to do the gallbladder surgery at this time. Continue with diuresis for his heart failure and needs cardiology followup on an outpatient basis. Patient's cirrhosis of the liver could be from the acute congestion from CHF. We will continue to monitor the patient and the patient was urged to go and see his primary care physician after the holidays in 1 to 2 weeks and continue monitoring his electrolytes and will need a cholecystectomy on an outpatient basis. Job#: [id number] ZANA
[2018-05-21] MEDS: IRON SUCROSE 100 MG in SODIUM CHLORIDE 0.9% 100 ML 100 ML IV SCH (09:00)
[2018-05-21] MEDS: FUROSEMIDE INJ 10 MG/ML 4 ML VIAL IV SCH (09:00)
[2018-05-21] MEDS: BUMETANIDE 1 MG TAB PO SCH (09:00)
[2018-05-21] MEDS ORDERED: ASPIRIN 81 MG ENTERIC COATED PO SCH (09:00)
--- NOTE | 2018-05-21 09:15 | NUR ---
DR Mg DURANT RETURNED CALL HE IS OK TO DISCHARGE AND FOLLOW UP AFTER 2 WEEKS
[2018-05-21] MEDS ORDERED: BUMETANIDE1 MG PO (10:16)
[2018-05-21] MEDS ORDERED: FERROUS SULFAT325 M1 PO (10:17)
--- NOTE | 2018-05-21 10:48 | NUR ---
PT WENT HOME IN SAFE CONDITION WITH HIS
== END 2018-05-21 10:48 | disposition home or self-care (01) | DRG 291 ==
LOC: ER 11:24 → ERHOLD 12:50 → IMCU 21:44 → OBSVTOIN 05-20 07:12 → MED/SURG2 05-20 20:50
PROVIDERS: ADMIT Family Medicine; ATTEND Family Medicine
PROC: 30233K1 Transfusion of Nonautologous Frozen Plasma into Peripheral Vein, Percutaneous Approach (ICD-10-PCS; 2018-05-19)
PROC: 0W9G3ZX Drainage of Peritoneal Cavity, Percutaneous Approach, Diagnostic (ICD-10-PCS; principal; 2018-05-20)
DX: I13.0 Hypertensive heart and chronic kidney disease with heart failure and stage 1 through stage 4 chronic kidney disease, or unspecified chronic kidney disease (principal); I50.23 Acute on chronic systolic (congestive) heart failure; K76.7 Hepatorenal syndrome; R18.8 Other ascites; N17.9 Acute kidney failure, unspecified; K74.60 Unspecified cirrhosis of liver; N18.9 Chronic kidney disease, unspecified; E11.22 Type 2 diabetes mellitus with diabetic chronic kidney disease; K76.1 Chronic passive congestion of liver; F32.9 Major depressive disorder, single episode, unspecified; E78.5 Hyperlipidemia, unspecified; I48.91 Unspecified atrial fibrillation; D50.9 Iron deficiency anemia, unspecified; I25.5 Ischemic cardiomyopathy; K81.9 Cholecystitis, unspecified; R33.9 Retention of urine, unspecified; N25.89 Other disorders resulting from impaired renal tubular function; Z95.1 Presence of aortocoronary bypass graft; Z95.810 Presence of automatic (implantable) cardiac defibrillator; Z87.891 Personal history of nicotine dependence; Z79.01 Long term (current) use of anticoagulants; Z79.84 Long term (current) use of oral hypoglycemic drugs; Z79.82 Long term (current) use of aspirin
CPT/HCPCS: 36415; 49083; 74176; 74470; 76705; 80048; 80053; 80061; 82040; 82103; 82105; 82140; 82270; 82390; 82550; 82553; 82570; 82607; 82728; 82948; 83540; 83880; 84156; 84443; 84466; 84484; 85025; 85045; 85610; 86039; 86301; 86850; 86900; 87070; 87205; 88112; 88305; 89051; 93005; 93306; 93976; 99284; G0378; J1756; J1940; J7050; P9017

== ENCOUNTER 2018-05-30 07:53 | Emergency (ER) | payer BC, OTHER ==
[~2018-05-30] VITALS: Ht 170.2 cm; Wt 81.2 kg
[~2018-05-30 07:53] MED LIST: ALDACTONE25 MG PO; ASPIRIN81 MG; ATORVASTATIN CA20 MG PO; BUMETANIDE1 MG PO; CARVEDILOL12.5 MG PO; FERROUS SULFAT325 M1 PO; KOMBIGLYZE XR1 EAC2 PO; LASIX40 MG PO; LEXAPRO10 MG PO; XARELTO20 MG PO
--- OUTSIDE RECORDS SUMMARY | 2018-05-30 07:56 | XMS REPORT ---
Author [facility] Address Unknown Phone Unavailable Care Team Providers Care Senior Materials Scientist Name Role Phone Rodolfo WALTERS Unavailable Unavailable Problems This patient has no known problems. Allergies, Adverse Reactions, Alerts This patient has no known allergies or adverse reactions. Medications This patient has no known medications. Results Test Description Test Time Test Comments Text Results Atomic Results Result Comments LIVER 2018-05-21 00:24:00 [place] [address] Patient Name: CHIOMA CASTILLO MR #: [id number] : 1975 Age/Sex: 43/M Req #: [id number] [facility] Physician: ROSE MARY WALTERS MD Ordered by: BETSY DURANT MD Report #: [id number] Location: MED/SURG2 Room/Bed: [facility] Procedure: [id number] US/US LIVER Exam Date: 05/20/18 Exam Time: 1846 REPORT STATUS: Signed EXAM: US LIVER DATE: 05/20/2018 12:00 AM INDICATION: With Doppler, evaluate for cirrhosis, ascites, COMPARISON: Recent CT TECHNIQUE: Transverse and longitudinal rivers scale and color doppler sonographic images of the upper abdomen were obtained. FINDINGS: LIVER 16.4 cm in the right midclavicular line. Normal echogenicity, nodular contour, no masses. Enlarged IVC and hepatic veins. GALLBLADDER Contracted limiting its assessment. Echogenic material likely reflecting non-shadowing stones or sludge. Markedly thickened gallbladder wall up to 1 cm nonspecific. Negative sonographic Ramirez's sign. BILE DUCTS No intra nor extra-hepatic biliary dilation. Common bile duct measures 0.2 cm PANCREAS: Visualized portions unremarkable. RIGHT KIDNEY: 9.4 cm Echogenicity: Normal Collecting System: No hydronephrosis Stones: None Cyst/Mass: None VESSELS: Aorta: Visualized portions are within normal size limits Inferior Vena Cava: Enlarged intrahepatic IVC Main Portal Vein: 0.8 cm, normal size with hepatopetal flow. Mildly pulsatile flow. FREE FLUID: Large volume ascites IMPRESSION: 1. Morphologic changes of cirrhosis, which may be cardiac in nature, given enlargement of the IVC and hepatic veins suggesting passive hepatic congestion. 2. Large volume ascites. 3. Contracted gallbladder containing stones with marked gallbladder wall thickening, presumably reactiv e. Signed by: Dr Chelita Gonzalez MD on 05/21/2018 12:31 AM Dictated By: CHELITA GONZALEZ MD 1032 Transcribed By: RAY on 05/22/18 1032 COPY TO: BETSY DURANT MD US RENAL/LIVER DOPPLER LTD 2018-05-21 00:24:00 [place] [address] Patient Name: CHIOMA CASTILLO MR #: [id number] : 1975 Age/Sex: 43/M Req #: [id number] Adm Physician: ROSE MARY WALTERS MD Ordered by: BETSY DURANT MD Report #: [id number] Location: MED/SURG2 Room/Bed: [facility] Procedure: [id number] US/US RENAL/LIVER DOPPLER LTD Exam Date: 05/20/18 Exam Time: 1845 REPORT STATUS: Signed EXAM: US LIVER DATE: 05/20/2018 12:00 AM INDICATION: With Doppler, evaluate for cirrhosis, ascites, COMPARISON: Recent CT TECHNIQUE: Transverse and longitudinal rivers scale and color doppler sonographic images of the upper abdomen were obtained. FINDINGS: LIVER 16.4 cm in the right midclavicular line. Normal echogenicity, nodular contour, no masses. Enlarged IVC and hepatic veins. GALLBLADDER Contracted limiting its assessment. Echogenic material likely reflecting non- shadowing stones or sludge. Markedly thickened gallbladder wall up to 1 cm nonspecific. Negative sonographic Ramirez's sign. BILE DUCTS No intra nor extra-hepatic biliary dilation. Common bile duct measures 0.2 cm PANCREAS: Visualized portions unremarkable. RIGHT KIDNEY: 9.4 cm Echogenicity: Normal Collecting System: No hydronephrosis Stones: None Cyst/Mass: None VESSELS: Aorta: Visualized portions are within normal size limits Inferior Vena Cava: Enlarged intrahepatic IVC Main Portal Vein: 0.8 cm, normal size with hepatopetal flow. Mildly pulsatile flow. FREE FLUID: Large volume ascites IMPRESSION: 1. Morphologic changes of cirrhosis, which may be cardiac in nature, given enlargement of the IVC and hepatic veins suggesting passive hepatic congestion. 2. Large volume ascites. 3. Contracted gallbladder containing stones with marked gallbladder wall thickening, presumably reactive. Signed by: Dr Chelita Gonzalez MD on 05/21/2018 12:31 AM Dictated By: CHELITA GONZALEZ MD 1032 Transcribed By: RAY on 05/22/18 1032 COPY TO: BETSY DURANT MD IR CONSULT 2018-05-19 16:33:00 [place] [address] Patient Name: CHIOMA CASTILLO MR #: [id number] : 1975 Age/Sex: 43/M Req #: [id number] Adm Physician: ROSE MARY WALTERS MD Ordered by: BETSY DURANT MD Report #: [id number] Location: [facility] Room/Bed: [place] [address] Procedure: [id number] DX/IR CONSULT Exam Date: Exam Time: REPORT STATUS: Signed PROCEDURE: US GUIDED PARACENTESIS COMPARISON: Patients Medical Ce nter, CT, CT ABDOMEN/PELVIS WO, 2018, 14:32. INDICATIONS: Ascites FINDINGS: Following informed consent and sterile preparation, an appropriate location in the left lower quadrant was determined. Utilizing ultrasound for guidance a 5 Irish Centeze catheter was placed after local anesthesia obtained with 1% Xylocaine. Drainage of approximately 9,600 cc of andres colored ascitic fluid was accomplished. The catheter was removed and hemostasis obtained. Patient tolerated procedure well. Specimens sent to the laboratory for analysis. Patient did receive 50 g of albumin during the procedure. CONCLUSION: Successful ultrasound-guided paracentesis. Joyce Parr D.O. Dictated by: Joyce Parr D.O. on 05/19/2018 at 16:33 Electronically approved by: Joyce Parr D.O. on 05/19/2018 at 16:33 Dictated By: JOYCE PARR DO 1633 Transcribed By: JANELL MONTGOMERY on 05/19/18 1633 COPY TO: BETSY DURANT MD US GUIDED PARACENTESIS 2018-05-19 16:33:00 [place] [address] Patient Name: CHIOMA CASTILLO MR #: [id number] : 1975 Age/Sex: 43/M Req #: [id number] Adm Physician: ROSE MARY WALTERS MD Ordered by: ROSE MARY WALTERS MD Report #: [id number] Location: [facility] Room/Bed: [place] [address] Procedure: [id number] US/US GUIDED PARACENTESIS Exam Date: Exam Time: REPORT STATUS: Signed PROCEDURE: US GUIDED PARACENTESIS COMPARISON: [facility], CT, CT ABDOMEN/PELVIS WO, 2018, 14:32. INDICATIONS: Ascites FINDINGS: Following informed consent and sterile preparation, an appropriate location in the left lower quadrant was determined. Utilizing ultrasound for guidance a 5 Irish Centeze catheter was placed after local anesthesia obtained with 1% Xylocaine. Drainage of approximately 9,600 cc of andres colored ascitic fluid was accomplished. The catheter was removed and hemostasis obtained. Patient tolerated procedure well. Specimens sent to the laboratory for analysis. Patient did receive 50 g of albumin during the procedure. CONCLUSION: Successful ultrasound-guided paracentesis. Joyce Parr D.O. Dictated by: Joyce Parr D.O. on 05/19/2018 at 16:33 Electronically approved by: Joyce Parr D.O. on 05/19/2018 at 16:33 Dictated By: JOYCE PARR DO 1633 Transcr ibed By: DAYAMI on 05/19/18 1633 COPY TO: ROSE MARY WALTERS MD CT ABDOMEN/PELVIS WO 2018 14:57:00 [place] [address] Patient Name: CHIOMA CASTILLO MR #: [id number] : 1975 Age/Sex: 43/M Req #: [id number] Adm Physician: ROSE MARY WALTERS MD Ordered by: SHANA JACOB MD Report #: [id number] Location: [facility] Room/Bed: [place] [address] Procedure: [id number] CT/CT ABDOMEN/PELVIS WO Exam Date: 05/17/18 Exam Time: 1430 REPORT STATUS: Signed EXAM: CT Abdomen and Pelvis WITHOUT contrast INDICATION: Ascites, pain COMPARISON: None. TECHNIQUE: Abdomen and Pelvis was scanned utilizing a multidetector helical scanner without the use of IV contrast. Coronal and sagittal reformations were obtained. IV CONTRAST: None COMPLICATIONS: None RADIATION DOSE: Total DLP: 746 mGy*cm Estimated effective dose: (DLP x 0.015 x size factor) mSv CTDIvol has been reviewed. It is below the limits set by the Radiation Protocol Committee (RPC). Appropriate CT dose reduction techniques were utilized. FINDINGS: Abdomen: Lung Bases: Trace left and [id number]-[id number] right effusions. Septal thickening and groundglass opacities present lung bases. ICD leads partially visualized. Solid Organs: Evaluation limited by lack of IV contrast, large volume ascites, and quantum mottling. Nodular contour of the liver. Limited evaluation of solid organs grossly unremarkable. Upper GI Tract: No distinct small bowel obstructive change. Vascularity: Mild aortic vascular calcifications with no aneurysm. Lymph Nodes: Inadequately evaluated. Other: Large amount of abdominal and pelvic free fluid. Body wall anasarca. Pelvis: Bladder: Unremarkable. Other: Large amount of free fluid. Colon: Evaluation markedly limited. Bones: No acute findings. IMPRESSION: 1. Evaluation markedly limited by large volume ascites, lack of IV contrast, and quantum mottling. 2. Large amount of abdominal and pelvic free fluid, possibly secondary to underlying cirrhosis. Underlying liver lesion cannot be excluded, exam. Clinical/laboratory correlation recommended. Additional bilateral anasarca. 3. Asymmetric to the right pleural effusions with septal thickening and groundglass opacities consistent with at least moderate volume overload. 4. Cardiomegaly. Echocardiogram could be obtained if indicated. Decreased attenuation of cardiac blood pool suggesting anemia. Signed by: Dr. Tomy Carr MD on 2018 3:01 PM Dictated By: TOMY CARR MD 1501 Transcribed By: RAY on 05/17/18 1501 COPY TO: SHANA JACOB MD
[2018-05-30] MEDS ORDERED: LIDOCAINE 1% W/EPINEPHRINE 20 ML VIAL ONE (09:09)
[2018-05-30 10:39] VITALS: BP 115/91
== END 2018-05-30 10:46 | disposition home or self-care (01) ==
LOC: ER 07:53
DX: K04.6 Periapical abscess with sinus (principal); I10 Essential (primary) hypertension; E11.9 Type 2 diabetes mellitus without complications; I50.9 Heart failure, unspecified; I25.10 Atherosclerotic heart disease of native coronary artery without angina pectoris; Z95.1 Presence of aortocoronary bypass graft
CPT/HCPCS: 99283